=== PATIENT | female | born 1965 | race American Indian/Alaskan Native ===

== ENCOUNTER 2016-10-29 08:38 | Emergency (ER) | payer MEDICAID ==
[2016-10-29 08:38] VITALS: BMI 32.2
[2016-10-29 08:46] VITALS: RESP 16; TEMP 98.2; O2SAT 99
[2016-10-29] MEDS ORDERED: Metoprolol 1 mg/ml Inj IVP ONE ×2 (09:18→11:46)
[2016-10-29] MEDS ORDERED: Insulin Regular 100 units/ml IV STA ×2 (09:19→11:39)
--- NOTE | 2016-10-29 09:19 | ED PDOC ---
HPI: Hypertension/Hypotension Time Seen by Provider: 10/29/16 09:04 Chief Complaint (Nursing): Abdominal Pain Chief Complaint (Provider): Hypertension History Per: Patient, Family History/Exam Limitations: no limitations Onset/Duration Of Symptoms: Hrs Current Symptoms Are (Timing): Still Present Severity: None Exacerbating Factor(s): Pos: Recently Missed Doses Of Medication Additional Complaint(s): Patient is a 51 year old female who presents to ED for evaluation of elevated blood pressure and sugar this morning. Patient was scheduled for a CT-abdomen by Dr. Shirley with sedation but while in SDS she was unable to be medically cleared. Patient states she has been having right sided abdominal pain for several days which was the reason for the Ct. Denies any nausea, vomiting, lightheadedness, chest pain or palpations at this time. Crib Clerk: Dr. Shirley PMD: Dr. Morales Past Medical History Reviewed: Historical Data, Nursing Documentation, Vital Signs Vital Signs: Last Vital Signs Temp 98.2 F 10/29/16 08:44 Pulse 85 10/29/16 08:44 Resp 16 10/29/16 08:44 BP 163/94 H 10/29/16 08:44 Pulse Ox 99 10/29/16 08:44 - Medical History PMH: Anemia, Anxiety, Asthma, Back Problems (chronic back pain ), Bipolar Disorder, Bronchitis, CAD, Cardia Arrhythmia, CVA, Dementia, Diabetes, HTN, Hypercholesterolemia, TIA Denies: Chronic Kidney Disease - Surgical History Surgical History: (2 C Sections) - Family History Family History: States: Unknown Family Hx, Diabetes, Hypertension - Living Arrangements Living Arrangements: With Family - Immunization History Hx Tetanus Toxoid Vaccination: No Hx Influenza Vaccination: No Hx Pneumococcal Vaccination: No - Home Medications Home Medications: Ambulatory Orders Medication Instructions Recorded Albuterol Sulfate [Proair Hfa] 2 puff IH Q6H PRN 06/07/13 Metformin HCl 1,000 mg PO BID 06/07/13 Sitagliptin Phosphate [Januvia] 100 mg PO DAILY 06/07/13 Benztropine [Cogentin] 1 mg PO DAILY 05/03/15 Dulaglutide [Trulicity] 0.5 ml SC TH 05/03/15 Gabapentin [Neurontin] 300 mg PO BID 05/03/15 Glimepiride [amaRYL] 4 mg PO BID 05/03/15 Insulin Human NPH [Humulin N] 34 unit SC HS 05/03/15 Insulin Lispro Mix 75/25 [HumaLOG 44 unit SC QAM 05/03/15 Mix 75/25] Insulin Lispro Mix 75/25 [HumaLOG 60 unit SC QPM 05/03/15 Mix 75/25] Metoprolol Tartrate [Lopressor] 25 mg PO BID 05/03/15 Triamterene/Hydrochlorothiazid 1 tab PO DAILY 05/03/15 [Triamterene-Hctz 37.5-25 mg Tb] Allopurinol [Zyloprim] 100 mg PO BID 09/13/15 Aspirin [Ecotrin] 81 mg PO DAILY 09/13/15 Methocarbamol [Robaxin] 1,000 mg PO QID PRN 09/13/15 Potassium Chloride [K-Dur 20 mEq 20 meq PO DAILY 09/13/15 ER Tab] Risperidone [Risperdal] 2 mg PO BID 09/13/15 hydrOXYzine Pamoate [Vistaril] 25 mg PO TID 09/13/15 amLODIPine [Norvasc] 10 mg PO DAILY #0 tab 09/14/15 - Allergies Allergies/Adverse Reactions: Allergies Allergy/AdvReac Type Severity Reaction Status Date / Time acetaminophen [From Percocet] Allergy URTICARIA Verified 09/12/15 18:18 oxycodone HCl [From Percocet] Allergy URTICARIA Verified 09/12/15 18:18 strawberry Allergy URTICARIA Verified 09/12/15 18:18 Review of Systems ROS Statement: Except As Marked, All Systems Reviewed And Found Negative Eyes: Negative for: Vision Change Cardiovascular: Negative for: Chest Pain, Palpitations Respiratory: Negative for: Shortness of Breath Gastrointestinal: Positive for: Abdominal Pain. Negative for: Nausea, Vomiting , Diarrhea Musculoskeletal: Positive for: Back Pain. Negative for: Neck Pain Skin: Negative for: Rash Neurological: Negative for: Weakness, Numbness Physical Exam - Reviewed Nursing Documentation Reviewed: Yes Vital Signs Reviewed: Yes - Physical Exam Appears: Positive for: Non-toxic, No Acute Distress Skin: Positive for: Normal Color, Warm Eye Exam: Positive for: Normal appearance Neck: Positive for: Normal, Painless ROM Gastrointestinal/Abdominal: Positive for: Normal Exam. Negative for: Tenderness , Distended Back: Positive for: Normal Inspection. Negative for: L CVA Tenderness, R CVA Tenderness Extremity: Positive for: Normal ROM Neurologic/Psych: Positive for: Alert, Oriented. Negative for: Motor/Sensory Deficits - Laboratory Results Result Diagrams: 10/29/16 10:33 10/29/16 10:33 - ECG O2 Sat by Pulse Oximetry: 99 (ra) Pulse Ox Interpretation: Normal Medical Decision Making Medical Decision Making: Time: 904 Initial impression: Elevated blood pressure, hyperglycemia Initial plan: Accucheck in ED 307, blood pressure at bedside elevated. Patient is remain NPO all medication by IV. -- CMP -- Lipase -- CBC -- Lopressor, NSF and Insulin Scribe Attestation: Documented by Cindy Lloyd acting as a scribe for Codey Jeff MD MD Scribe Attestation: All medical record entries made by the Scribe were at my direction and personally dictated by me. I have reviewed the chart and agree that the record accurately reflects my personal performance of the history, physical exam, medical decision making, and the department course for this patient. I have also personally directed, reviewed, and agree with the discharge instructions and disposition. Disposition - Clinical Impression Clinical Impression: Abdominal pain, Hyperglycemia, Hypertension - Patient ED Disposition Is Patient to be Admitted: No Doctor Will See Patient In The: Office Counseled Patient/Family Regarding: Studies Performed, Diagnosis, Need For Followup - Disposition Referrals: Graham Shirley MD [Medical Doctor] - Disposition: Routine/Home Disposition Time: 12:48 Condition: GOOD Additional Instructions: Follow up with your PCP in 2-3 days. Instructions: Hypertension (ED), Diabetic Hyperglycemia (ED)
[2016-10-29] MEDS ORDERED: Sodium Chloride 0.9% 1,000 ML IV STA (09:20)
[2016-10-29 10:47] LABS: BASO % 0.4 % (0.0-2.0); EOS # 0.1 K/uL (0.0-0.7); EOS % 1.3 % (0.0-4.0); HEMATOCRIT 40.4 % (34.0-47.0); LYMPH # 2.9 K/uL (1.0-4.3); LYMPH % 36.1 % (20.0-40.0); MEAN CELL VOLUME 78.1 fl (81.0-99.0); MEAN CORPUSCULAR HEMOGLOBIN 25.7 pg (27.0-31.0); MEAN CORPUSCULAR HGB CONC 32.9 g/dL (33.0-37.0); MONO # 0.4 K/uL (0.0-0.8); MONO % 4.8 % (0.0-10.0); NEUT # 4.6 K/uL (1.8-7.0); NEUT % 57.4 % (50.0-75.0); NRBC % 0.1 % (0.0-0.0); RED CELL DISTRIBUTION WIDTH 15.2 % (11.5-14.5); WHITE BLOOD COUNT 8.1 K/uL (4.8-10.8)
[2016-10-29 10:57] LABS: CHLORIDE 98 mmol/L (98-107); POTASSIUM 3.9 MMOL/L (3.6-5.0); SODIUM 138 mmol/l (132-148)
[2016-10-29 10:59] LABS: BILIRUBIN,TOTAL 0.6 mg/dl (0.2-1.3); GFR AFRICAN-AMERICAN > 60
[2016-10-29 11:00] LABS: ALB/GLOB RATIO 1.3 (1.0-2.1); ALKALINE PHOSPHATASE 96 U/L (38-126); ALT/SGPT 24 U/L (9-52); AST/SGOT 15 U/L (14-36); BLOOD UREA NITROGEN 8 mg/dl (7-17); CALCIUM 9.5 mg/dL (8.4-10.2); CARBON DIOXIDE 26 mmol/L (22-30); GLUCOSE,RANDOM 304 mg/dL (65-105); LIPASE 133 U/L (23-300); TOTAL PROTEIN 7.5 G/DL (6.3-8.2)
[2016-10-29] MEDS ORDERED: Metoprolol 1 mg/ml Inj IVP STA (11:40)
[2016-10-29 12:40] VITALS: BP 144/89; PULSE 85
== END 2016-10-29 13:04 | disposition home or self-care (01) ==
LOC: H.ER 08:38
DX: R10.9 Unspecified abdominal pain (principal); E11.65 Type 2 diabetes mellitus with hyperglycemia; I10 Essential (primary) hypertension; E78.00 Pure hypercholesterolemia, unspecified; F03.90 Unspecified dementia, unspecified severity, without behavioral disturbance, psychotic disturbance, mood disturbance, and anxiety; F31.9 Bipolar disorder, unspecified; F41.9 Anxiety disorder, unspecified; I25.10 Atherosclerotic heart disease of native coronary artery without angina pectoris; Z79.4 Long term (current) use of insulin; Z79.82 Long term (current) use of aspirin; Z86.73 Personal history of transient ischemic attack (TIA), and cerebral infarction without residual deficits

== ENCOUNTER 2017-03-16 06:28 | Observation (INO) | payer MEDICAID ==
[2017-03-16 06:29] VITALS: BMI 32.2
[2017-03-16 06:48] VITALS: RESP 16
--- NOTE | 2017-03-16 07:49 | ED PDOC ---
HPI: Chest Pain Time Seen by Provider: 03/16/17 07:04 Chief Complaint (Nursing): Chest Pain Chief Complaint (Provider): Chest Pain History Per: Patient History/Exam Limitations: no limitations Onset/Duration Of Symptoms: Hrs Current Symptoms Are (Timing): Intermittent Episodes Quality: Sharp Additional Complaint(s): Ashanti Montiel,a 51 year old female, with a past medical history of coronary artery disease and cardiac arrhythmia presents to the ED complaining of sharp, intermittent left sided chest pain which started this morning. The patient states that the pain radiates down her left arm and is associated with shortness of breath and nausea. She states that she takes daily aspirin which offered no relief, but states she did not take any today. Patient reports that she had a stress test performed which she failed but she tried again and does not know the results. PMD: Dr. Hanson Past Medical History Reviewed: Historical Data, Nursing Documentation, Vital Signs Vital Signs: Last Vital Signs Temp 98.5 F 03/16/17 06:45 Pulse 88 03/16/17 07:01 Resp 16 03/16/17 06:45 BP 187/96 H 03/16/17 06:45 Pulse Ox 98 03/16/17 08:00 - Medical History PMH: Anemia, Anxiety, Arthritis, Asthma, Back Problems (chronic back pain ), Bipolar Disorder, Bronchitis, CAD, Cardia Arrhythmia, CVA, Dementia, Diabetes, HTN, Hypercholesterolemia Denies: Colonic Polyps, Fractures, Chronic Kidney Disease, TIA - Surgical History Surgical History: (2 C Sections) - Family History Family History: States: Unknown Family Hx, Diabetes, Hypertension - Social History Current smoker - smoking cessation education provided: No Alcohol: None Drugs: Denies - Immunization History Hx Tetanus Toxoid Vaccination: No Hx Influenza Vaccination: No Hx Pneumococcal Vaccination: No - Home Medications Home Medications: Ambulatory Orders Medication Instructions Recorded Albuterol Sulfate [Proair Hfa] 2 puff IH Q6H PRN 06/07/13 Metformin HCl 1,000 mg PO BID 06/07/13 Sitagliptin Phosphate [Januvia] 100 mg PO DAILY 06/07/13 Benztropine [Cogentin] 1 mg PO DAILY 05/03/15 Dulaglutide [Trulicity] 0.5 ml SC TH 05/03/15 Gabapentin [Neurontin] 300 mg PO BID 05/03/15 Glimepiride [amaRYL] 4 mg PO BID 05/03/15 Insulin Human NPH [Humulin N] 34 unit SC HS 05/03/15 Insulin Lispro Mix 75/25 [HumaLOG 44 unit SC QAM 05/03/15 Mix 75/25] Insulin Lispro Mix 75/25 [HumaLOG 60 unit SC QPM 05/03/15 Mix 75/25] Metoprolol Tartrate [Lopressor] 25 mg PO BID 05/03/15 Triamterene/Hydrochlorothiazid 1 tab PO DAILY 05/03/15 [Triamterene-Hctz 37.5-25 mg Tb] Allopurinol [Zyloprim] 100 mg PO BID 09/13/15 Aspirin [Ecotrin] 81 mg PO DAILY 09/13/15 Methocarbamol [Robaxin] 1,000 mg PO QID PRN 09/13/15 Potassium Chloride [K-Dur 20 mEq 20 meq PO DAILY 09/13/15 ER Tab] Risperidone [Risperdal] 2 mg PO BID 09/13/15 hydrOXYzine Pamoate [Vistaril] 25 mg PO TID 09/13/15 amLODIPine [Norvasc] 10 mg PO DAILY #0 tab 09/14/15 Enalapril Maleate [Vasotec] 20 mg PO DAILY 11/06/16 - Allergies Allergies/Adverse Reactions: Allergies Allergy/AdvReac Type Severity Reaction Status Date / Time acetaminophen [From Percocet] Allergy URTICARIA Verified 03/16/17 06:45 oxycodone HCl [From Percocet] Allergy URTICARIA Verified 03/16/17 06:45 strawberry Allergy URTICARIA Verified 03/16/17 06:45 JULIEN Risk Score for UA/NSTEMI - JULIEN Risk Score Age > 64: NO 3 or more CAD Risk Factors: YES Known CAD (Stenosis greater than 50%): YES Aspirin use in past 7 days: YES Severe Angina: NO EKG ST changes greater than 0.5mm: NO Positive Cardiac Marker: NO JULIEN Score: 3 Risk %: 13% Review of Systems ROS Statement: Except As Marked, All Systems Reviewed And Found Negative Cardiovascular: Positive for: Chest Pain (left sided chest pain radiates down left arm) Respiratory: Positive for: Shortness of Breath Gastrointestinal: Positive for: Nausea Physical Exam - Reviewed Nursing Documentation Reviewed: Yes Vital Signs Reviewed: Yes - Physical Exam Appears: Positive for: Non-toxic, No Acute Distress Head Exam: Positive for: ATRAUMATIC, NORMAL INSPECTION, NORMOCEPHALIC Skin: Positive for: Normal Color, Warm, Dry. Negative for: Rash Eye Exam: Positive for: Normal appearance, EOMI, PERRL ENT: Positive for: Normal ENT Inspection Neck: Positive for: Normal, Painless ROM, Supple Cardiovascular/Chest: Positive for: Regular Rate, Rhythm, Chest Non Tender. Negative for: Murmur, Tachycardia Respiratory: Positive for: Normal Breath Sounds. Negative for: Rales, Rhonchi, Wheezing, Respiratory Distress Gastrointestinal/Abdominal: Positive for: Normal Exam, Bowel Sounds, Soft. Negative for: Tenderness, Mass, Guarding, Rebound Back: Positive for: Normal Inspection. Negative for: L CVA Tenderness Extremity: Positive for: Normal ROM. Negative for: Tenderness, Deformity, Swelling Neurologic/Psych: Positive for: Alert, Oriented, Gait - Laboratory Results Result Diagrams: 03/16/17 08:28 03/16/17 08:28 - ECG O2 Sat by Pulse Oximetry: 98 (RA) Pulse Ox Interpretation: Normal Medical Decision Making Medical Decision Makin Initial Impression: 51 year old female presenting with radiating left sided chest pain Initial Plan: * EKG * PROBNP * CMP * Troponin * Udip * CBC * PTT * Prothrombin * Time * CXR * [id number] * Urinalysis * Reevaluation EKG performed * Normal sinus rhythm at 72 * No ST changes Scribe Attestation Documented by Connie Arnold acting as a scribe for Ember Roblero MD. Provider Attestation All medical record entries made by the Scribe were at my direction and personally dictated by me. I have reviewed the chart and agree that the record accurately reflects my personal performance of the history, physical exam, medical decision making, and the department course for this patient. I have also personally directed, reviewed, and agree with the discharge instructions and disposition. Disposition - Clinical Impression Clinical Impression: Chest pain - Patient ED Disposition Is Patient to be Admitted: Yes - Disposition Disposition Time: 09:23 Condition: STABLE Forms: [employer] (Arabic) - Pt Status Changed To: Hospital Disposition Of: Observation - POA Present On Arrival: Poor Glycemic Control
[2017-03-16] MEDS ORDERED: Sodium Chloride 0.9% 1,000 ML IV STA (08:13)
[2017-03-16 08:33] LABS: BASO # 0.1 K/uL (0.0-0.2); BASO % 0.7 % (0.0-2.0); EOS # 0.1 K/uL (0.0-0.7); EOS % 1.9 % (0.0-4.0); HEMATOCRIT 37.5 % (34.0-47.0); LYMPH # 2.4 K/uL (1.0-4.3); LYMPH % 30.6 % (20.0-40.0); MEAN CELL VOLUME 80.1 fl (81.0-99.0); MEAN CORPUSCULAR HEMOGLOBIN 27.2 pg (27.0-31.0); MEAN PLATELET VOLUME 10.4 fl (7.2-11.7); MONO # 0.4 K/uL (0.0-0.8); MONO % 5.4 % (0.0-10.0); NEUT # 4.7 K/uL (1.8-7.0); NEUT % 61.4 % (50.0-75.0); NRBC % 0.2 % (0.0-0.0); RED CELL DISTRIBUTION WIDTH 15.1 % (11.5-14.5); WHITE BLOOD COUNT 7.7 K/uL (4.8-10.8)
[2017-03-16 08:41] LABS: RBC URINE 3 /hpf (0-3); URINE BACTERIA RARE (<OCC); URINE BILIRUBIN NEGATIVE (NEGATIVE); URINE BLOOD NEGATIVE (NEGATIVE); URINE COLOR STRAW (YELLOW); URINE GLUCOSE (UA) >=500 mg/dL (Normal); URINE KETONE NEGATIVE (NEGATIVE); URINE LEUKOCYTE ESTERASE NEG Leu/uL (Negative); URINE PROTEIN 30 mg/dL (NEGATIVE); URINE UROBILINOGEN 0.2-1.0 mg/dL (0.2-1.0); WBC URINE 1 /hpf (0-5)
[2017-03-16 08:45] LABS: PARTIAL THROMBOPLASTIN TIME 34.4 Seconds (25.6-37.1)
[2017-03-16 08:56] LABS: ALB/GLOB RATIO 1.3 (1.0-2.1); ALKALINE PHOSPHATASE 120 U/L (38-126); ALT/SGPT 35 U/L (9-52); AST/SGOT 24 U/L (14-36); BILIRUBIN,TOTAL 0.5 mg/dl (0.2-1.3); BLOOD UREA NITROGEN 12 mg/dl (7-17); CALCIUM 8.7 mg/dL (8.4-10.2); CARBON DIOXIDE 26 mmol/L (22-30); CHLORIDE 102 mmol/L (98-107); GFR AFRICAN-AMERICAN > 60; GLUCOSE,RANDOM 314 mg/dL (65-105); POTASSIUM 4.1 MMOL/L (3.6-5.0); SODIUM 137 mmol/l (132-148); TOTAL PROTEIN 7.1 G/DL (6.3-8.2)
--- NOTE | 2017-03-16 09:55 | RAD ---
HISTORY: Chest pain COMPARISON: 09/12/2015 FINDINGS: LUNGS: The lungs are well inflated and clear. PLEURA: No significant pleural effusion identified, no pneumothorax apparent. CARDIOVASCULAR: Normal. OSSEOUS STRUCTURES: No significant abnormalities. VISUALIZED UPPER ABDOMEN: Normal. OTHER FINDINGS: None. IMPRESSION: No active pulmonary disease.
[2017-03-16 09:57] VITALS: BP 121/77; PULSE 80; TEMP 97.8; O2SAT 100
--- NOTE | 2017-03-16 11:18 | CARD ---
APPROVED REPORT EKG Measurement Heart [id number] HI 180P41 [id number] <Conclusion> Normal sinus rhythm Normal ECG
== END 2017-03-16 09:57 | disposition left against medical advice (07) ==
LOC: H.ER 06:28 → H.ERHOLD 09:22
PROVIDERS: ADMIT Internal Medicine; ATTEND Internal Medicine
DX: R07.9 Chest pain, unspecified (principal); E11.9 Type 2 diabetes mellitus without complications; E78.00 Pure hypercholesterolemia, unspecified; F03.90 Unspecified dementia, unspecified severity, without behavioral disturbance, psychotic disturbance, mood disturbance, and anxiety; F31.9 Bipolar disorder, unspecified; I10 Essential (primary) hypertension; J45.909 Unspecified asthma, uncomplicated; Z86.73 Personal history of transient ischemic attack (TIA), and cerebral infarction without residual deficits; D64.9 Anemia, unspecified; F41.9 Anxiety disorder, unspecified; J40 Bronchitis, not specified as acute or chronic; M54.9 Dorsalgia, unspecified; G89.29 Other chronic pain; M19.90 Unspecified osteoarthritis, unspecified site; I25.10 Atherosclerotic heart disease of native coronary artery without angina pectoris; Z79.82 Long term (current) use of aspirin; Z79.84 Long term (current) use of oral hypoglycemic drugs; R11.0 Nausea
CPT/HCPCS: 71010; 80053; 81003; 82948; 83880; 84484; 85025; 85610; 85730; 93005; 96360; 99283; G0378; J7040

== ENCOUNTER 2017-06-28 07:42 | Emergency (ER) | payer MEDICAID ==
[2017-06-28 07:43] VITALS: BMI 32.2
[2017-06-28 08:06] VITALS: BP 162/93; PULSE 84; RESP 18; TEMP 98; O2SAT 97
--- NOTE | 2017-06-28 08:56 | ED PDOC ---
HPI: SOB/CHF/COPD Time Seen by Provider: 06/28/17 08:04 Chief Complaint (Nursing): Shortness Of Breath Chief Complaint (Provider): Shortness Of Breath History Per: Patient History/Exam Limitations: no limitations Onset/Duration Of Symptoms: Days (x1 week) Current Symptoms Are (Timing): Still Present Additional Complaint(s): Ashanti Montiel is a 51 year old female with a past medical history of asthma who presents to the ED complaining of shortness of breath with exertion walking less than 1 block x1 week. Patient also reports left sided chest pain 3 days ago , orthopnea and leg swelling. PMD: Provider TBD Against Medical Advice - AMA Patient Left Against Medical Advice: The patient declines admission to the hospital and wishes to leave the Emergency Department. This action is against my medical advice. This decision was made with informed refusal. The patient was told that admission to the hospital is necessary. Explanation of the reasons why were discussed. The risks of leaving were explained to the patient and include, but are not limited to, worsening of known or currently unknown conditions, permanent disability and from undiagnosed or untreated conditions. The patient has the capacity to make this informed decision and understands my explanation of the current medical problem and risks of leaving. The patient voluntarily accepts these risks and signed an AMA form documenting our conversation. The patient was given the opportunity to ask questions and reconsider. The patient was encouraged to return to the Emergency Department at any time for further care. Past Medical History Reviewed: Historical Data, Nursing Documentation, Vital Signs Vital Signs: Last Vital Signs Temp 98 F 06/28/17 08:03 Pulse 84 06/28/17 08:03 Resp 18 06/28/17 08:08 BP 162/93 H 06/28/17 08:03 Pulse Ox 97 07/04/17 10:33 - Medical History PMH: Anemia, Anxiety, Arthritis, Asthma, Back Problems (chronic back pain ), Bipolar Disorder, Bronchitis, CAD, Cardia Arrhythmia, CVA, Dementia, Diabetes, HTN, Hypercholesterolemia Denies: Colonic Polyps, Fractures, Chronic Kidney Disease, TIA - Surgical History Surgical History: (2 C Sections) - Family History Family History: States: Unknown Family Hx, Diabetes, Hypertension - Social History Current smoker - smoking cessation education provided: No Alcohol: None Drugs: Denies - Immunization History Hx Tetanus Toxoid Vaccination: No Hx Influenza Vaccination: No Hx Pneumococcal Vaccination: No - Home Medications Home Medications: Ambulatory Orders Medication Instructions Recorded Albuterol Sulfate [Proair Hfa] 2 puff IH Q6H PRN 06/07/13 Metformin HCl 1,000 mg PO BID 06/07/13 Sitagliptin Phosphate [Januvia] 100 mg PO DAILY 06/07/13 Benztropine [Cogentin] 1 mg PO DAILY 05/03/15 Dulaglutide [Trulicity] 0.5 ml SC TH 05/03/15 Gabapentin [Neurontin] 300 mg PO BID 05/03/15 Glimepiride [amaRYL] 4 mg PO BID 05/03/15 Insulin Human NPH [Humulin N] 34 unit SC HS 05/03/15 Insulin Lispro Mix 75/25 [HumaLOG 44 unit SC QAM 05/03/15 Mix 75/25] Insulin Lispro Mix 75/25 [HumaLOG 60 unit SC QPM 05/03/15 Mix 75/25] Metoprolol Tartrate [Lopressor] 25 mg PO BID 05/03/15 Triamterene/Hydrochlorothiazid 1 tab PO DAILY 05/03/15 [Triamterene-Hctz 37.5-25 mg Tb] Allopurinol [Zyloprim] 100 mg PO BID 09/13/15 Aspirin [Ecotrin] 81 mg PO DAILY 09/13/15 Methocarbamol [Robaxin] 1,000 mg PO QID PRN 09/13/15 Potassium Chloride [K-Dur 20 mEq 20 meq PO DAILY 09/13/15 ER Tab] Risperidone [Risperdal] 2 mg PO BID 09/13/15 hydrOXYzine Pamoate [Vistaril] 25 mg PO TID 09/13/15 amLODIPine [Norvasc] 10 mg PO DAILY #0 tab 09/14/15 Enalapril Maleate [Vasotec] 20 mg PO DAILY 11/06/16 - Allergies Allergies/Adverse Reactions: Allergies Allergy/AdvReac Type Severity Reaction Status Date / Time acetaminophen [From Percocet] Allergy URTICARIA Verified 03/16/17 06:45 oxycodone HCl [From Percocet] Allergy URTICARIA Verified 03/16/17 06:45 strawberry Allergy URTICARIA Verified 03/16/17 06:45 Review of Systems ROS Statement: Except As Marked, All Systems Reviewed And Found Negative Constitutional: Negative for: Fever Respiratory: Positive for: Cough (non-productive), SOB with Exertion Physical Exam - Reviewed Nursing Documentation Reviewed: Yes Vital Signs Reviewed: Yes - Physical Exam Appears: Positive for: Well, Non-toxic, No Acute Distress Head Exam: Positive for: ATRAUMATIC, NORMAL INSPECTION, NORMOCEPHALIC Skin: Positive for: Normal Color, Warm, Dry Eye Exam: Positive for: EOMI, Normal appearance, PERRL Neck: Positive for: Normal, Painless ROM, Supple Cardiovascular/Chest: Positive for: Regular Rate, Rhythm. Negative for: Murmur Respiratory: Positive for: Normal Breath Sounds. Negative for: Respiratory Distress Gastrointestinal/Abdominal: Positive for: Normal Exam, Bowel Sounds, Soft. Negative for: Tenderness Back: Positive for: Normal Inspection. Negative for: L CVA Tenderness, R CVA Tenderness, Vertebral Tenderness Extremity: Positive for: Normal ROM. Negative for: Pedal Edema, Deformity Neurologic/Psych: Positive for: Alert, Oriented. Negative for: Motor/Sensory Deficits - Laboratory Results Result Diagrams: 06/28/17 08:44 06/28/17 08:44 - ECG O2 Sat by Pulse Oximetry: 97 (RA) Pulse Ox Interpretation: Normal Medical Decision Making Medical Decision Making: Time: 08:08 Initial Impression: URI Plan: --EKG --ProBNP --CMP --Troponin I --ED urine dipstick --CBC w/ differential --D Dimer --PTT --Prothrombin time --X-Ray chest portable --Blood culture --Urinalysis Time: 12:55 --This patient is choosing to leave against medical advice. I have personally explained to the pt that choosing to do so may result in permanent bodily harm or . I have discussed at great length that without further evaluation and monitoring there may be unforeseen circumstances and/or deterioration causing permanent bodily harm or as a result of their choice. The pt verbalized these risks back to the physician in laymans terms. The pt is alert, oriented, and shows the mental capacity to make clear decisions regarding the pts health care at this time. The pt continues to wish to leave against medical advice. --In light of the pts decision to leave AMA, follow-up has been arranged and the pt is aware of the importance of following up as instructed. The pt has been advised that they should return to the ED immediately if they change their mind at any time, or if their condition begins to change or worsen in any way. Scribe Attestation: Documented by Roshan Ramos acting as a scribe for Ember Roblero MD. Scribe Attestation: All medical record entries made by the Scribe were at my direction and personally dictated by me. I have reviewed the chart and agree that the record accurately reflects my personal performance of the history, physical exam, medical decision making, and the department course for this patient. I have also personally directed, reviewed, and agree with the discharge instructions and disposition. Disposition - Clinical Impression Clinical Impression: Chest pain, Dyspnea - Patient ED Disposition Is Patient to be Admitted: No - Disposition Disposition: Against Medical Advice Disposition Time: 12:55 Condition: FAIR Forms: [employer] ([place]ian)
[2017-06-28 08:57] LABS: RBC URINE 1 /hpf (0-3); URINE BILIRUBIN NEGATIVE (NEGATIVE); URINE BLOOD NEGATIVE (NEGATIVE); URINE COLOR STRAW (YELLOW); URINE GLUCOSE (UA) >=500 mg/dL (Normal); URINE KETONE NEGATIVE (NEGATIVE); URINE LEUKOCYTE ESTERASE NEG Leu/uL (Negative); URINE PROTEIN 100 mg/dL (NEGATIVE); URINE UROBILINOGEN 0.2-1.0 mg/dL (0.2-1.0); WBC URINE 1 /hpf (0-5)
[2017-06-28 09:03] LABS: ALB/GLOB RATIO 1.3 (1.0-2.1); BILIRUBIN,TOTAL 0.6 mg/dl (0.2-1.3); CALCIUM 8.7 mg/dL (8.4-10.2); CARBON DIOXIDE 26 mmol/L (22-30); CHLORIDE 104 mmol/L (98-107); GFR AFRICAN-AMERICAN > 60; GLUCOSE,RANDOM 281 mg/dL (65-105); SODIUM 141 mmol/l (132-148); TOTAL PROTEIN 7.6 G/DL (6.3-8.2)
[2017-06-28 09:08] LABS: ALKALINE PHOSPHATASE 80 U/L (38-126); ALT/SGPT 30 U/L (9-52); AST/SGOT 27 U/L (14-36); BLOOD UREA NITROGEN 10 mg/dl (7-17); POTASSIUM 4.4 MMOL/L (3.6-5.0)
[2017-06-28 09:11] LABS: BASO % 0.6 % (0.0-2.0); EOS # 0.2 K/uL (0.0-0.7); EOS % 2.3 % (0.0-4.0); HEMATOCRIT 38.9 % (34.0-47.0); LYMPH % 37.8 % (20.0-40.0); MEAN CELL VOLUME 79.3 fl (81.0-99.0); MEAN CORPUSCULAR HEMOGLOBIN 25.2 pg (27.0-31.0); MEAN CORPUSCULAR HGB CONC 31.8 g/dL (33.0-37.0); MEAN PLATELET VOLUME 9.9 fl (7.2-11.7); MONO # 0.4 K/uL (0.0-0.8); MONO % 5.3 % (0.0-10.0); NEUT # 4.3 K/uL (1.8-7.0); RED CELL DISTRIBUTION WIDTH 15.4 % (11.5-14.5); WHITE BLOOD COUNT 7.9 K/uL (4.8-10.8)
[2017-06-28 09:48] LABS: PARTIAL THROMBOPLASTIN TIME 35.8 Seconds (25.6-37.1)
--- NOTE | 2017-06-28 11:57 | RAD ---
HISTORY: Shortness of breath. Portable study 08:34. COMPARISON: 03/16/2017. FINDINGS: LUNGS: No active pulmonary disease. PLEURA: No significant pleural effusion identified, no pneumothorax apparent. CARDIOVASCULAR: No radiographic findings to suggest acute or significant cardiovascular disease. OSSEOUS STRUCTURES: No significant abnormalities. VISUALIZED UPPER ABDOMEN: Normal. OTHER FINDINGS: None. IMPRESSION: No active disease. No significant interval change compared to the prior examination(s).
--- NOTE | 2017-06-29 11:10 | CARD ---
APPROVED REPORT EKG Measurement Heart [id number] MD [id number] <Conclusion> Normal sinus rhythm Possible Left atrial enlargement Incomplete RBBB
== END 2017-06-28 13:10 | disposition left against medical advice (07) ==
LOC: H.ER 07:42
DX: R07.9 Chest pain, unspecified (principal); R06.00 Dyspnea, unspecified; E11.9 Type 2 diabetes mellitus without complications; Z86.59 Personal history of other mental and behavioral disorders; G89.29 Other chronic pain; J45.909 Unspecified asthma, uncomplicated; Z86.73 Personal history of transient ischemic attack (TIA), and cerebral infarction without residual deficits

== ENCOUNTER 2017-09-05 16:54 | Emergency (ER) | payer MEDICAID ==
[2017-09-05 16:54] VITALS: BMI 32.2
--- NOTE | 2017-09-05 17:33 | ED PDOC ---
HPI: Abdomen Time Seen by Provider: 09/05/17 17:14 Chief Complaint (Nursing): Abdominal Pain Chief Complaint (Provider): Abdominal Pain History Per: Patient History/Exam Limitations: no limitations Onset/Duration Of Symptoms: Days (x2) Outside of [place] travel?: No Current Symptoms Are (Timing): Still Present Additional Complaint(s): 52 year old female with medical history of hypercholesterolemia and diabetes, who presents to the emergency department with a complaint of abdominal pain associated with nausea, vomiting and diarrhea ongoing for 2 days. Denied any fever, chills, chest pain, shortness of breath, difficulty urinating, bloody urine, incontinence, sick contacts or recent travel. PMD: none provided Past Medical History Reviewed: Historical Data (.0), Nursing Documentation, Vital Signs Vital Signs: Last Vital Signs Temp 99.8 F H 09/05/17 20:50 Pulse 108 H 09/05/17 20:50 Resp 16 09/05/17 20:50 BP 109/57 L 09/05/17 20:50 Pulse Ox 95 09/05/17 20:50 - Medical History PMH: Anemia, Anxiety, Arthritis, Asthma, Back Problems (chronic back pain ), Bipolar Disorder, Bronchitis, CAD, Cardia Arrhythmia, CVA, Dementia, Diabetes, HTN, Hypercholesterolemia Denies: No Chronic Diseases, Colonic Polyps, Fractures, Chronic Kidney Disease, TIA - Surgical History Surgical History: (2 C Sections) Denies: No Surg Hx Other surgeries: hysterectomy - Family History Family History: States: Unknown Family Hx, Diabetes, Hypertension - Social History Current smoker - smoking cessation education provided: No Alcohol: None Drugs: Denies - Immunization History Hx Tetanus Toxoid Vaccination: No Hx Influenza Vaccination: No Hx Pneumococcal Vaccination: No - Home Medications Home Medications: Ambulatory Orders Medication Instructions Recorded Albuterol Sulfate [Proair Hfa] 2 puff IH Q6H PRN 06/07/13 Metformin HCl 1,000 mg PO BID 06/07/13 Sitagliptin Phosphate [Januvia] 100 mg PO DAILY 06/07/13 Benztropine [Cogentin] 1 mg PO DAILY 05/03/15 Dulaglutide [Trulicity] 0.5 ml SC TH 05/03/15 Gabapentin [Neurontin] 300 mg PO BID 05/03/15 Glimepiride [amaRYL] 4 mg PO BID 10/09/15 Insulin Human NPH [Humulin N] 34 unit SC HS 05/03/15 Insulin Lispro Mix 75/25 [HumaLOG 44 unit SC QAM 05/03/15 Mix 75/25] Insulin Lispro Mix 75/25 [HumaLOG 60 unit SC QPM 05/03/15 Mix 75/25] Metoprolol Tartrate [Lopressor] 25 mg PO BID 05/03/15 Triamterene/Hydrochlorothiazid 1 tab PO DAILY 05/03/15 [Triamterene-Hctz 37.5-25 mg Tb] Allopurinol [Zyloprim] 100 mg PO BID 09/13/15 Aspirin [Ecotrin] 81 mg PO DAILY 09/13/15 Methocarbamol [Robaxin] 1,000 mg PO QID PRN 09/13/15 Potassium Chloride [K-Dur 20 mEq 20 meq PO DAILY 09/13/15 ER Tab] Risperidone [Risperdal] 2 mg PO BID 09/13/15 hydrOXYzine Pamoate [Vistaril] 25 mg PO TID 09/13/15 amLODIPine [Norvasc] 10 mg PO DAILY #0 tab 09/14/15 Enalapril Maleate [Vasotec] 20 mg PO DAILY 11/06/16 Ciprofloxacin [Cipro] 500 mg PO BID #13 tab 09/05/17 Dicyclomine [Bentyl] 20 mg PO QID PRN #10 tab 09/05/17 metroNIDAZOLE [Flagyl] 500 mg PO TID #20 tab 09/05/17 - Allergies Allergies/Adverse Reactions: Allergies Allergy/AdvReac Type Severity Reaction Status Date / Time acetaminophen [From Percocet] Allergy URTICARIA Verified 09/05/17 16:59 oxycodone HCl [From Percocet] Allergy URTICARIA Verified 09/05/17 16:59 strawberry Allergy URTICARIA Verified 09/05/17 16:59 Review of Systems ROS Statement: Except As Marked, All Systems Reviewed And Found Negative Constitutional: Negative for: Fever, Chills Cardiovascular: Negative for: Chest Pain Respiratory: Negative for: Shortness of Breath Gastrointestinal: Positive for: Nausea, Vomiting, Abdominal Pain, Diarrhea Genitourinary Female: Negative for: Dysuria, Incontinence, Hematuria Physical Exam - Reviewed Nursing Documentation Reviewed: Yes Vital Signs Reviewed: Yes - Physical Exam Appears: Positive for: Well, Non-toxic, No Acute Distress Cardiovascular/Chest: Positive for: Regular Rate, Rhythm, Chest Non Tender Respiratory: Positive for: Normal Breath Sounds. Negative for: Decreased Breath Sounds, Respiratory Distress Gastrointestinal/Abdominal: Positive for: Soft, Tenderness (LLQ). Negative for : Normal Exam, Guarding, Rebound Neurologic/Psych: Positive for: Alert, Oriented - Laboratory Results Result Diagrams: 09/05/17 18:45 09/05/17 18:45 - ECG O2 Sat by Pulse Oximetry: 98 (RA) Pulse Ox Interpretation: Normal Medical Decision Making Medical Decision Making: Initial Impression: Abdominal pain Initial Plan: * CT ABD/pelvis with IV contrast * EKG * CMP * Urine * Urine dipstick * CBC * PTT * PT * NS 1000ml IV per 1,000mls/hr * Zofran 4mg IV * Accu-check * UA ____ Time: 2021 --CT ABD/pelvis FINDINGS: Lower thorax: No acute findings. ABDOMEN: Liver: Fatty infiltration. Gallbladder and bile ducts: No calcified stones. No ductal dilation. Pancreas: 1.4 x 1.5 x 1.1 cm hypodense lesion within/along uncinate process, grossly stable. Spleen: No splenomegaly. Adrenals: No mass. Kidneys and ureters: Probable LEFT renal cyst. Few too small to characterize lesions within kidneys. No hydronephrosis. Stomach and bowel: Few scattered diverticula within colon. No associated inflammatory stranding. Segmental areas of mild mural thickening vs underdistention of large bowel. No associated inflammatory stranding. No obstruction. Appendix: No findings to suggest acute appendicitis. PELVIS: Bladder: Unremarkable. Reproductive: Hysterectomy. ABDOMEN and PELVIS: Intraperitoneal space: No significant fluid collection. No free air. Bones/joints: Facet osteoarthrosis within lower lumbar spine with anterolisthesis. No acute fracture. Soft tissues: Laparotomy scar. Vasculature: Mild atherosclerotic disease. No aneurysm. Lymph nodes: No pathologically enlarged lymph nodes. IMPRESSION: 1. Mild colitis versus underdistention. Clinical correlation is needed. 2. Pancreatic lesion. Recommend a single follow-up abdominal MRI in 1 year. 3. Incidental/non-acute findings are described above. Scribe Attestation: Documented by Charity Brennan, acting as a scribe for Ember Roblero MD. Provider Scribe Attestation: All medical record entries made by the Scribe were at my direction and personally dictated by me. I have reviewed the chart and agree that the record accurately reflects my personal performance of the history, physical exam, medical decision making, and the department course for this patient. I have also personally directed, reviewed, and agree with the discharge instructions and disposition. Disposition - Clinical Impression Clinical Impression: Colitis - Disposition Disposition: Routine/Home Disposition Time: 22:18 Condition: STABLE Additional Instructions: FOLLOW-UP WITH PMD WITHIN 2 DAYS FOR REEVALUATION. Prescriptions: Ciprofloxacin [Cipro] 500 mg PO BID #13 tab Dicyclomine [Bentyl] 20 mg PO QID PRN #10 tab PRN Reason: Pain, Moderate (4-7) metroNIDAZOLE [Flagyl] 500 mg PO TID #20 tab Instructions: Colitis (ED) Forms: [employer] ([place])
[2017-09-05] MEDS ORDERED: Sodium Chloride 0.9% 1,000 ML IV STA (18:17)
[2017-09-05 18:50] LABS: BASO % 0.3 % (0.0-2.0); EOS % 0.2 % (0.0-4.0); HEMOGLOBIN 13.7 g/dL (12.0-16.0); LYMPH # 0.6 K/uL (1.0-4.3); LYMPH % 5.3 % (20.0-40.0); MEAN CELL VOLUME 78.4 fl (81.0-99.0); MEAN CORPUSCULAR HEMOGLOBIN 25.4 pg (27.0-31.0); MEAN CORPUSCULAR HGB CONC 32.4 g/dL (33.0-37.0); MONO # 0.3 K/uL (0.0-0.8); MONO % 2.3 % (0.0-10.0); NEUT # 10.6 K/uL (1.8-7.0); NEUT % 91.9 % (50.0-75.0); NRBC % 0.1 % (0.0-0.0); PLATELET COUNT 256 K/uL (130-400); RED CELL DISTRIBUTION WIDTH 16.2 % (11.5-14.5); WHITE BLOOD COUNT 11.5 K/uL (4.8-10.8)
[2017-09-05 18:52] VITALS: RESP 16
[2017-09-05 19:07] LABS: ALB/GLOB RATIO 1.2 (1.0-2.1); ALBUMIN 4.7 g/dL (3.5-5.0); ALT/SGPT 29 U/L (9-52); AST/SGOT 18 U/L (14-36); BLOOD UREA NITROGEN 24 mg/dl (7-17); CALCIUM 10.4 mg/dL (8.4-10.2); GFR AFRICAN-AMERICAN > 60; GFR NON-AFRICAN AMERICAN > 60
[2017-09-05 19:09] LABS: SQUAMOUS EPITHIAL 3 /hpf (0-5); URINE BACTERIA RARE (<OCC); URINE BILIRUBIN NEGATIVE (NEGATIVE); URINE BLOOD NEGATIVE (NEGATIVE); URINE CLARITY CLOUDY (Clear); URINE COLOR YELLOW (YELLOW); URINE GLUCOSE (UA) >=500 mg/dL (Normal); URINE LEUKOCYTE ESTERASE NEG Leu/uL (Negative); URINE NITRATE NEGATIVE (NEGATIVE); URINE PROTEIN 30 mg/dL (NEGATIVE); URINE UROBILINOGEN 0.2-1.0 mg/dL (0.2-1.0)
[2017-09-05 19:23] LABS: LYMPHOCYTE 7 % (20-50); MONOCYTE 3 % (0-10); NEUTROPHIL 90 % (42-75); PLATELET ESTIMATE NORMAL (NORMAL); TOTAL CELLS COUNTED 100
[2017-09-05] MEDS ORDERED: Iohexol 300 100 ML IJ ONE (19:30)
[2017-09-05] MEDS ORDERED: Sodium Chloride 0.9% 50 ML IV ONE (19:31)
[2017-09-05 19:49] LABS: INR 1.1 (0.9-1.2); PARTIAL THROMBOPLASTIN TIME 32.4 Seconds (25.6-37.1); PROTHROMBIN TIME 12.7 Seconds (9.8-13.1)
--- NOTE | 2017-09-05 20:22 | CT ---
EXAM: CT Abdomen and Pelvis With Intravenous Contrast CLINICAL HISTORY: 52 years old, female; Signs and symptoms; Nausea and vomiting and other: Diarrhea; Prior surgery; Surgery date: 6+ months; Surgery type: 2 c-sections. Hysterectomy; Additional info: Llq pain. Sent phy. Doc. TECHNIQUE: Axial computed tomography images of the abdomen and pelvis with intravenous contrast. All CT scans at this facility use one or more dose reduction techniques, viz.: automated exposure control; ma/kV adjustment per patient size (including targeted exams where dose is matched to indication; i.e. head); or iterative reconstruction technique. Coronal and sagittal reformatted images were created and reviewed. CONTRAST: 95 mL of [id number] administered intravenously. COMPARISON: CT - ABDOMEN,PELVIS W/WO CONTRAST 2016-10-29 14:33 FINDINGS: Lower thorax: No acute findings. ABDOMEN: Liver: Fatty infiltration. Gallbladder and bile ducts: No calcified stones. No ductal dilation. Pancreas: 1.4 x 1.5 x 1.1 cm hypodense lesion within/along uncinate process, grossly stable. Spleen: No splenomegaly. Adrenals: No mass. Kidneys and ureters: Probable LEFT renal cyst. Few too small to characterize lesions within kidneys. No hydronephrosis. Stomach and bowel: Few scattered diverticula within colon. No associated inflammatory stranding. Segmental areas of mild mural thickening vs underdistention of large bowel. No associated inflammatory stranding. No obstruction. Appendix: No findings to suggest acute appendicitis. PELVIS: Bladder: Unremarkable. Reproductive: Hysterectomy. ABDOMEN and PELVIS: Intraperitoneal space: No significant fluid collection. No free air. Bones/joints: Facet osteoarthrosis within lower lumbar spine with anterolisthesis. No acute fracture. Soft tissues: Laparotomy scar. Vasculature: Mild atherosclerotic disease. No aneurysm. Lymph nodes: No pathologically enlarged lymph nodes. IMPRESSION: 1. Mild colitis versus underdistention. Clinical correlation is needed. 2. Pancreatic lesion. Recommend a single follow-up abdominal MRI in 1 year. 3. Incidental/non-acute findings are described above.
[2017-09-05 20:50] VITALS: BP 109/57; PULSE 108; TEMP 99.8
--- NOTE | 2017-09-06 13:39 | CARD ---
APPROVED REPORT EKG Measurement Heart [id number] <Conclusion> Normal sinus rhythm Possible Left atrial enlargement Incomplete right bundle branch block Right ventricular hypertrophy with repolarization abnormality Nonspecific T wave abnormality Abnormal ECG
[2017-09-15 17:05] VITALS: O2SAT 98
== END 2017-09-05 22:37 | disposition home or self-care (01) ==
LOC: H.ER 16:54
DX: K52.9 Noninfective gastroenteritis and colitis, unspecified (principal); Z86.59 Personal history of other mental and behavioral disorders; I10 Essential (primary) hypertension; J45.909 Unspecified asthma, uncomplicated; Z86.73 Personal history of transient ischemic attack (TIA), and cerebral infarction without residual deficits; Z90.710 Acquired absence of both cervix and uterus; Z88.5 Allergy status to narcotic agent; Z79.4 Long term (current) use of insulin; F03.90 Unspecified dementia, unspecified severity, without behavioral disturbance, psychotic disturbance, mood disturbance, and anxiety; M54.9 Dorsalgia, unspecified; G89.29 Other chronic pain; E11.9 Type 2 diabetes mellitus without complications; Z79.82 Long term (current) use of aspirin; I25.10 Atherosclerotic heart disease of native coronary artery without angina pectoris; E78.00 Pure hypercholesterolemia, unspecified
CPT/HCPCS: 74177; 80053; 81003; 82948; 85025; 85610; 85730; 87804; 93005; 96374; 99284; J2405; J7040; Q9967

== ENCOUNTER 2018-02-15 13:37 | Inpatient (IN) | payer MEDICAID ==
[2018-02-15 13:37] VITALS: BMI 32.2
--- NOTE | 2018-02-15 14:00 | ED PDOC ---
HPI:STROKE - Time Time: 13:58 - Historian Historian: Patient - Chief Complaint Chief Complaint: Numbness (Left arm numbness x 2 days Denies chest pain or headache) - Onset Date: 02/13/18 Time: 14:00 Onset: Days (2) - Timing Timing: Improved - Location Locate left: Upper extremity - Radiation Radiation: Face, Jaw - Severity of pain Maximum severity:: Mild Pain Scale:: 0 Severity Current: Mild - Associated Symptoms Associated symptoms:: Numbness - Exacerbated by Exacerbated by:: Nothing - Relieved by Relieved by:: Nothing - TPA Positive for Contraindication: Yes Reason tPA is not being Administered: Sxs greater than 2 days NIHSS Stroke Scale - How Severe is the Stroke Level of Consciousness: 0=Alert LOC to Questions: 0=Both comments correct LOC to commands: 0=Obeys both correctly Best Gaze: 0=Normal Visual: 0=No visual loss Facial: 0=Normal Motor Arm - Left: 0=No drift Motor Arm - Right: 0=No drift Motor Leg - Left: 0=No drift Motor Leg - Right: 0=No drift Limb Ataxia: 0=Absent Sensory: 1=Mild to moderate loss Best Language: 0=No aphasia Dysarthia: 0=Normal articulation Extinction & Inattention (Neglect): 0=Normal, no object Score: 1 rTPA Inclusion/Exclusion - Refusal of Treatment Patient Refused Treatment: No - Inclusion Criteria for Altepase Patient is 18 years or Older: Yes The Clinical Diagnosis of Ischemic Stroke That is Causing a Potentially Disabling Neurological Deficit: No Time of Onset is Well Established to be Less Than 270 Minute Before Treatment Would Begin: No Risk/Benefit Discussed With Patient/Family Member Present: No Past Medical History Vital Signs: Last Vital Signs Temp 98.9 F 02/15/18 13:43 Pulse 97 H 02/15/18 13:43 Resp 18 02/15/18 13:43 BP 142/92 H 02/15/18 13:43 Pulse Ox 98 02/15/18 13:43 - Medical History PMH: Anemia, Anxiety, Arthritis, Asthma, Back Problems (chronic back pain ), Bipolar Disorder, Bronchitis, CAD, Cardia Arrhythmia, CVA, Dementia, Diabetes, HTN, Hypercholesterolemia Denies: Colonic Polyps, Fractures, Chronic Kidney Disease, TIA - Surgical History Surgical History: (2 C Sections) - Family History Family History: States: Unknown Family Hx, Diabetes, Hypertension - Immunization History Hx Tetanus Toxoid Vaccination: No Hx Influenza Vaccination: No Hx Pneumococcal Vaccination: No - Home Medications Home Medications: Ambulatory Orders Medication Instructions Recorded Albuterol Sulfate [Proair Hfa] 2 puff IH Q6H PRN 06/07/13 Metformin HCl 1,000 mg PO BID 06/07/13 Sitagliptin Phosphate [Januvia] 100 mg PO DAILY 06/07/13 Benztropine [Cogentin] 1 mg PO DAILY 05/03/15 Dulaglutide [Trulicity] 0.5 ml SC TH 05/03/15 Gabapentin [Neurontin] 300 mg PO BID 05/03/15 Glimepiride [amaRYL] 4 mg PO BID 05/03/15 Insulin Human NPH [Humulin N] 34 unit SC HS 05/03/15 Insulin Lispro Mix 75/25 [HumaLOG 44 unit SC QAM 05/03/15 Mix 75/25] Insulin Lispro Mix 75/25 [HumaLOG 60 unit SC QPM 05/03/15 Mix 75/25] Metoprolol Tartrate [Lopressor] 25 mg PO BID 05/03/15 Triamterene/Hydrochlorothiazid 1 tab PO DAILY 05/03/15 [Triamterene-Hctz 37.5-25 mg Tb] Allopurinol [Zyloprim] 100 mg PO BID 09/13/15 Aspirin [Ecotrin] 81 mg PO DAILY 09/13/15 Methocarbamol [Robaxin] 1,000 mg PO QID PRN 09/13/15 Potassium Chloride [K-Dur 20 mEq 20 meq PO DAILY 09/13/15 ER Tab] Risperidone [Risperdal] 2 mg PO BID 09/13/15 hydrOXYzine Pamoate [Vistaril] 25 mg PO TID 09/13/15 amLODIPine [Norvasc] 10 mg PO DAILY #0 tab 09/14/15 Enalapril Maleate [Vasotec] 20 mg PO DAILY 11/06/16 Ciprofloxacin [Cipro] 500 mg PO BID #13 tab 09/05/17 Dicyclomine [Bentyl] 20 mg PO QID PRN #10 tab 09/05/17 metroNIDAZOLE [Flagyl] 500 mg PO TID #20 tab 09/05/17 - Allergies Allergies/Adverse Reactions: Allergies Allergy/AdvReac Type Severity Reaction Status Date / Time acetaminophen [From Percocet] Allergy URTICARIA Verified 02/15/18 13:42 oxycodone HCl [From Percocet] Allergy URTICARIA Verified 02/15/18 13:42 strawberry Allergy URTICARIA Verified 02/15/18 13:42 Review of Systems ROS Statement: Except As Marked, All Systems Reviewed And Found Negative Cardiovascular: Negative for: Chest Pain Neurological: Positive for: Numbness (Left arm) Physical Exam - Reviewed Nursing Documentation Reviewed: Yes Vital Signs Reviewed: Yes - Physical Exam Appears: Positive for: Non-toxic, No Acute Distress Head Exam: Positive for: ATRAUMATIC, NORMAL INSPECTION, NORMOCEPHALIC Skin: Positive for: Normal Color, Warm, DRY Eye Exam: Positive for: EOMI, Normal appearance, PERRL ENT: Positive for: Normal ENT Inspection Neck: Positive for: Normal, Painless ROM Cardiovascular/Chest: Positive for: Regular Rate, Rhythm Respiratory: Positive for: CNT, Normal Breath Sounds Gastrointestinal/Abdominal: Positive for: Normal Exam, Soft Back: Positive for: Normal Inspection Extremity: Positive for: Normal ROM Neurologic/Psych: Positive for: Alert, Oriented, Motor/Sensory Deficits (Mild [id number] sensation left upper ext) - Laboratory Results Result Diagrams: 02/15/18 14:28 02/15/18 14:28 - ECG O2 Sat by Pulse Oximetry: 98 Disposition - Clinical Impression Clinical Impression: TIA (transient ischemic attack) - Patient ED Disposition Is Patient to be Admitted: Yes - Disposition Disposition Time: 16:16 Condition: FAIR Forms: [facility] ([place]inian) - Pt Status Changed To: Hospital Disposition Of: Observation - POA Present On Arrival: None
[2018-02-15 14:39] LABS: BASO # 0.1 K/uL (0.0-0.2); BASO % 0.6 % (0.0-2.0); EOS # 0.1 K/uL (0.0-0.7); EOS % 1.2 % (0.0-4.0); HEMOGLOBIN 14.3 g/dL (12.0-16.0); LYMPH # 3.5 K/uL (1.0-4.3); LYMPH % 36.5 % (20.0-40.0); MEAN CELL VOLUME 77.8 fl (81.0-99.0); MEAN CORPUSCULAR HGB CONC 33.4 g/dL (33.0-37.0); MEAN PLATELET VOLUME 9.9 fl (7.2-11.7); MONO # 0.5 K/uL (0.0-0.8); MONO % 5.1 % (0.0-10.0); NEUT # 5.4 K/uL (1.8-7.0); NEUT % 56.6 % (50.0-75.0); NRBC % 0.1 % (0.0-0.0); RBC 5.52 Mil/uL (3.80-5.20); RED CELL DISTRIBUTION WIDTH 15.5 % (11.5-14.5); WHITE BLOOD COUNT 9.5 K/uL (4.8-10.8)
--- NOTE | 2018-02-15 14:46 | RAD ---
Date of service: 02/15/2018 HISTORY: Code Stroke COMPARISON: Portable chest 06/28/2017. FINDINGS: LUNGS: No active pulmonary disease. PLEURA: No significant pleural effusion identified, no pneumothorax apparent. CARDIOVASCULAR: Prominent appearing cardiac silhouette reiterated. OSSEOUS STRUCTURES: No significant abnormalities. VISUALIZED UPPER ABDOMEN: Normal. OTHER FINDINGS: None. IMPRESSION: No pulmonary vascular congestion or active interval pulmonary disease. Prominent cardiac silhouette reiterated.
[2018-02-15] MEDS: Sodium Chloride 0.9% 1,000 ML IV SCH (14:47)
[2018-02-15 15:08] LABS: CALCIUM 9.9 mg/dL (8.4-10.2); GFR AFRICAN-AMERICAN > 60; GFR NON-AFRICAN AMERICAN > 60; HDL CHOLESTEROL 47 MG/DL (30-70)
[2018-02-15 15:10] LABS: ALB/GLOB RATIO 1.2 (1.0-2.1); ALBUMIN 4.6 g/dL (3.5-5.0); ALT/SGPT 17 U/L (9-52); AST/SGOT 42 U/L (14-36); BLOOD UREA NITROGEN 18 mg/dl (7-17)
[2018-02-15 15:14] LABS: PROTHROMBIN TIME 11.5 Seconds (9.8-13.1)
[2018-02-15 15:19] LABS: LDL CHOLESTEROL 158 mg/dL (0-129)
--- NOTE | 2018-02-15 15:52 | CT ---
Date of service: 02/15/2018 PROCEDURE: CT HEAD WITHOUT CONTRAST. HISTORY: Left arm numbness COMPARISON: None available. TECHNIQUE: Axial computed tomography images were obtained through the head/brain without intravenous contrast. Radiation dose: Total exam DLP = 997.74 mGy-cm. This CT exam was performed using one or more of the following dose reduction techniques: Automated exposure control, adjustment of the mA and/or kV according to patient size, and/or use of iterative reconstruction technique. FINDINGS: HEMORRHAGE: No intracranial hemorrhage. BRAIN: Normal patel-white matter differentiation and density are appreciated throughout the cerebrum and cerebellum with the brainstem appearing unremarkable as well. There is no mass effect. There is no suspicious extra-axial fluid collection and the midline brain anatomy appears diffusely unremarkable. VENTRICLES: Unremarkable. No hydrocephalus. CALVARIUM: Unremarkable. PARANASAL SINUSES: Trace right sphenoid sinusitis. MASTOID AIR CELLS: Unremarkable as visualized. No inflammatory changes. OTHER FINDINGS: None. IMPRESSION: Negative CT examination of the brain without contrast. Incidental trace right sphenoid sinusitis.
--- NOTE | 2018-02-15 16:47 | CARD ---
APPROVED REPORT Date of service: 02/15/2018 EKG Measurement Heart [id number] <Conclusion> Normal sinus rhythm Possible Left atrial enlargement Prolonged QT Abnormal ECG
[2018-02-16] MEDS ORDERED: Albuterol HFA 90 mcg/actuation (8 g) IH PRN (00:15)
[2018-02-16] MEDS: Insulin Lispro (humaLOG) 100 Units/ml Inj SC SCH ×4 (06:43→21:29)
[2018-02-16] MEDS: Enoxaparin 40 mg Syringe SC SCH (08:49)
[2018-02-16] MEDS: Multivitamin With Minerals Tab PO SCH (08:51)
[2018-02-16] MEDS: GlipiZIDE 10 mg SR Tab PO SCH (08:52)
[2018-02-16] MEDS: Metoprolol Succinate 100 mg XL Tab PO SCH (08:52)
[2018-02-16] MEDS: Fluticasone-Salmeterol 100-50mcg Diskus IH SCH ×2 (08:53→21:28)
[2018-02-16] MEDS: Insulin Detemir 100 Units/ml Inj SC SCH ×2 (09:00→17:45)
[2018-02-16] MEDS ORDERED: Patient's Own Med (Multivitamin [Multi-Vitamin Daily] 1 TAB) PO SCH (09:00)
[2018-02-16] MEDS ORDERED: Patient's Own Med (Budesonide/Formoterol Fumarate [Symbicort 80-4.5 Mcg Inhaler] 2 PUFF) IH SCH (09:00)
[2018-02-16] MEDS: Pantoprazole 40 mg EC Tab PO SCH (18:11)
[2018-02-16] MEDS: Sodium Chloride 0.9% 1,000 ML IV SCH ×2 (18:22)
--- NOTE | 2018-02-16 19:55 | CP.PCM.CON ---
History of Present Illness - History of Present Illness History of Present Illness: Coverage for Dr Matos who is on consult. Patient is a 52 year old female with a PMH HTN, DM who presents with left sided weakness. The patient states symptoms began 2 days ago when she developed numbness on the left side of her face and weakness of her upper/lower extremity. She states a similar episode occurred when she was in her 20s. She was diagnosed with a CVA and was placed on "blood thinners" The patient is currently in 4N. She states numbness has improved, but the patient has extremity weakness. head CT was negative, but the patient did not tolerate MRI. Review of Systems - Constitutional Constitutional: absent: As Per HPI, Anorexia, Chills, Daytime Sleepiness, Excessive Sweating, Fatigue, Fever, Frequent Falls, Headache, Increased Appetite , Lethargy, Malaise, Night Sweats, Snoring, Sleep Apnea, Weight Gain, Weight Loss, Weakness, Other - EENT Eyes: absent: As Per HPI, Blind Spots, Blurred Vision, Change in Vision, Decreased Night Vision, Diplopia, Discharge, Dry Eye, Exophthalmos, Floaters, Irritation, Itchy Eyes, Loss of Peripheral Vision, Pain, Photophobia, Requires Corrective Lenses, Sees Flashes, Spots in Vision, Tunnel Vision, Other Visual Disturbances, Loss of Vision, Other Ears: absent: As Per HPI, Decreased Hearing, Ear Discharge, Ear Pain, Tinnitus, Abnormal Hearing, Disequilibrium, Dizziness, Other Nose/Mouth/Throat: absent: As Per HPI, Epistaxis, Nasal Congestion, Nasal Discharge, Nasal Obstruction, Nasal Trauma, Nose Pain, Post Nasal Drip, Sinus Pain, Sinus Pressure, Bleeding Gums, Change in Voice, Dental Pain, Dry Mouth, Dysphagia, Halitosis, Hoarsness, Lip Swelling, Mouth Lesions, Mouth Pain, Odynophagia, Sore Throat, Throat Swelling, Tongue Swelling, Facial Pain, Neck Pain, Neck Mass, Other - Breasts Breasts: absent: As Per HPI, Change in Shape, Mass, Pain, Nipple Discharge, Nipple Inversion, Skin Changes, Swelling, Other - Cardiovascular Cardiovascular: absent: As Per HPI, Acrocyanosis, Chest Pain, Chest Pain at Rest , Chest Pain with Activity, Claudication, Diaphoresis, Dyspnea, Dyspnea on Exertion, Edema, Irregular Heart Rhythm, Pain Radiating to Arm/Neck/Jaw, Leg Edema, Leg Ulcers, Lightheadedness, Orthopnea, Palpitations, Paroxysmal Nocturnal Dyspnea, Pedal Edema, Radiating Pain, Rapid Heart Rate, Slow Heart Rate, Syncope, Other - Respiratory Respiratory: absent: As Per HPI, Cough, Dyspnea, Hemoptysis, Dyspnea on Exertion , Wheezing, Snoring, Stridor, Pain on Inspiration, Chest Congestion, Excessive Mucous Production, Change in Mucous Color, Pain with Coughing, Other - Gastrointestinal Gastrointestinal: absent: As Per HPI, Abdominal Pain, Belching, Bloating, Change in Bowel Habits, Change in Stool Character, Coffee Ground Emesis, Constipation, Cramping, Diarrhea, Dyspepsia, Dysphagia, Early Satiety, Excessive Flatus, Fecal Incontinence, Heartburn, Hematemesis, Hematochezia, Loose Stools, Melena, Nausea, Odynophagia, Temesmus, Vomiting, Other - Genitourinary Genitourinary: absent: As Per HPI, Change in Urinary Stream, Difficulty Urinating, Dysuria, Flank Pain, Hematuria, Pyuria, Nocturia, Urinary Incontinence, Urinary Frequency, Urinary Hesitance, Urinary Urgency, Voiding Freq/Small Amts, Freq UTI, Hx Renal/Bladder Calculi, Hx /Renal Surgery, Bladder Distension, Other - Menstruation Menstruation: absent: As Per HPI, Amenorrhea, Amenorrhea/ Control, Currently Menstual, Cycle <21 Days, Cycle >35 Days, Cycle Variable, Menses 1-7 Days, Menses >/= 8 Days, Menses Variable, Cycle > 4 Weeks Between, No Menses for 6 Months, Heavy Menses, Light Menses, Normal Menses, Spotting Between Cycles , S/P Hysterectomy, Menopausal, Post Menopausal, Premenarche, Abnormal Vaginal Bleeding, Dysmenorrhea, Other - Musculoskeletal Musculoskeletal: Muscle Weakness, Numbness - Integumentary Integumentary: absent: As Per HPI, Acne, Alopecia, Bleeding Lesions, Change in Hair, Change in Nails, Change in Pigmentation, Changing Lesions, Dry Skin, Erythema, Furuncle, Hirsutism, Lesions, New Lesions, Non-Healing Lesions, Photosensitivity, Pruritus, Rash, Skin Pain, Skin Ulcer, Sores, Striae, Swelling , Unusual Bruising, Wounds, Jaundice, Other - Neurological Neurological: Focal Weakness - Psychiatric Psychiatric: absent: As Per HPI, Abnormal Sleep Pattern, Anhedonia, Anxiety, Auditory Hallucinations, Behavioral Changes, Change in Appetite, Change in Libido, Confusion, Depression, Difficulty Concentrating, Hallucinations, Homicidal Ideation, Hopelessness, Irritability, Memory Loss, Mood Swings, Panic Attacks, Paranoia, Suicidal Ideation, Visual Hallucinations, Tactile Hallucinations, Other - Endocrine Endocrine: absent: As Per HPI, Change in Body Appearance, Change in Libido, Cold Intolorance, Deepening of Voice, Excessive Sweating, Fatigue, Flushing, Heat Intolorance, Increase in Ring/Shoe/Hat Size, Palpitations, Polydipsia, Polyphagia, Polyuria, Other - Hematologic/Lymphatic Hematologic: absent: As Per HPI, Easy Bleeding, Easy Bruising, Lymphadenopathy, Other Past Patient History - Infectious Disease Hx of Infectious Diseases: None - Past Medical History & Family History Past Medical History?: Yes - Past Social History Smoking Status: Former Smoker - CARDIAC Hx Cardiac Disorders: Yes (CAD, cardiac arrythmia, HTN, high chol.) - PULMONARY Hx Respiratory Disorders: Yes (asthma, bronchitis) - NEUROLOGICAL Hx Neurological Disorder: Yes (TIA) - HEENT Hx HEENT Problems: No - RENAL Hx Chronic Kidney Disease: No - ENDOCRINE/METABOLIC Hx Endocrine Disorders: Yes (DM) - HEMATOLOGICAL/ONCOLOGICAL Hx Blood Disorders: Yes (anemia) - INTEGUMENTARY Hx Dermatological Problems: No - MUSCULOSKELETAL/RHEUMATOLOGICAL Hx Musculoskeletal Disorders: Yes (arthitis, chronic back pain) Hx Falls: Yes - GASTROINTESTINAL Hx Gastrointestinal Disorders: No - GENITOURINARY/GYNECOLOGICAL Hx Genitourinary Disorders: No - PSYCHIATRIC Hx Psychophysiologic Disorder: Yes (anxiety, bi-polar) Hx Substance Use: Yes (marijuana) - SURGICAL HISTORY Hx Surgeries: Yes Hx Hysterectomy: Yes - ANESTHESIA Hx Anesthesia: Yes Hx Anesthesia Reactions: No Hx Malignant Hyperthermia: No Meds Allergies/Adverse Reactions: Allergies Allergy/AdvReac Type Severity Reaction Status Date / Time acetaminophen [From Percocet] Allergy URTICARIA Verified 02/15/18 13:42 oxycodone HCl [From Percocet] Allergy URTICARIA Verified 02/15/18 13:42 strawberry Allergy URTICARIA Verified 02/15/18 13:42 - Medications Medications: Current Medications Albuterol (Ventolin Hfa 90 Mcg/Actuation (8 G)) 2 puff IH Q6 PRN PRN Reason: Shortness of Breath Allopurinol (Zyloprim) 100 mg PO Q12 [facility] Last Admin: 02/16/18 08:51 Dose: 100 mg Amlodipine Besylate (Norvasc) 10 mg PO DAILY [facility] Last Admin: 02/16/18 08:51 Dose: 10 mg Aspirin (Ecotrin) 81 mg PO DAILY [facility] Last Admin: 02/16/18 13:00 Dose: 81 mg Atorvastatin Calcium (Lipitor) 20 mg PO DAILY [facility] Last Admin: 02/16/18 08:52 Dose: 20 mg Benztropine Mesylate (Cogentin) 0.5 mg PO DAILY [facility] Last Admin: 02/16/18 09:38 Dose: 0.5 mg Enoxaparin Sodium (Lovenox) 40 mg SC DAILY [facility] PRN Reason: Protocol Last Admin: 02/16/18 08:49 Dose: 40 mg Gabapentin (Neurontin) 300 mg PO Q12 [facility] Last Admin: 02/16/18 08:52 Dose: 300 mg Glipizide (Glucotrol Xl) 10 mg PO BRK [facility] Last Admin: 02/16/18 08:52 Dose: 10 mg Home Med (Empagliflozin [Jardiance]) 10 mg PO DAILY [facility] Last Admin: 02/16/18 15:15 Dose: 10 mg Hydroxyzine Pamoate (Vistaril) 25 mg PO Q8 [facility] Last Admin: 02/16/18 18:14 Dose: Not Given Sodium Chloride (Sodium Chloride 0.9%) 1,000 mls @ 100 mls/hr IV .Q10H [facility] Last Admin: 02/16/18 18:22 Dose: 100 mls/hr Ibuprofen (Motrin Tab) 600 mg PO Q6 PRN PRN Reason: Pain, moderate (4-7) Last Admin: 02/16/18 18:10 Dose: 600 mg Insulin Detemir (Levemir) 42 units SC BID [facility] Last Admin: 02/16/18 17:45 Dose: 42 units Insulin Human Lispro (Humalog) 0 units SC ACHS [facility] PRN Reason: Protocol Last Admin: 02/16/18 16:50 Dose: 2 u Losartan Potassium (Cozaar) 100 mg PO DAILY [facility] Last Admin: 02/16/18 08:51 Dose: 100 mg Metformin HCl (Glucophage) 1,000 mg PO BID [facility] Last Admin: 02/16/18 17:50 Dose: 1,000 mg Metoprolol Succinate (Toprol Xl) 100 mg PO DAILY [facility] Last Admin: 02/16/18 08:52 Dose: 100 mg Montelukast Sodium (Singulair) 10 mg PO DAILY [facility] Last Admin: 02/16/18 08:53 Dose: 10 mg Multivitamins/Minerals (Therapeutic-M Tab) 1 tab PO DAILY [facility] Last Admin: 02/16/18 08:51 Dose: 1 tab Pantoprazole Sodium (Protonix Ec Tab) 40 mg PO DAILY [facility] Last Admin: 02/16/18 18:11 Dose: 40 mg Risperidone (Risperdal Tab) 2 mg PO Q12 [facility] Last Admin: 02/16/18 08:50 Dose: 2 mg Fluticasone/Salmeterol (Advair Diskus 100/50) 1 puff IH Q12 [facility] Last Admin: 02/16/18 08:53 Dose: 1 puff Sitagliptin Phosphate (Januvia) 100 mg PO DAILY [facility] Last Admin: 02/16/18 08:50 Dose: 100 mg Tizanidine HCl (Zanaflex) 4 mg PO HS PRN PRN Reason: Muscle spasm Physical Exam - Constitutional Appears: Non-toxic - Head Exam Head Exam: NORMAL INSPECTION - Eye Exam Eye Exam: Normal appearance - ENT Exam ENT Exam: Mucous Membranes Moist - Neck Exam Neck exam: Positive for: Normal Inspection - Respiratory Exam Respiratory Exam: NORMAL BREATHING PATTERN - Cardiovascular Exam Cardiovascular Exam: REGULAR RHYTHM - GI/Abdominal Exam GI & Abdominal Exam: Normal Bowel Sounds - Rectal Exam Rectal Exam: Deferred - Extremities Exam Extremities exam: Positive for: normal inspection. Negative for: pedal edema - Back Exam Back exam: NORMAL INSPECTION - Neurological Exam Neurological exam: Motor Sensory Deficit - Psychiatric Exam Psychiatric exam: Normal Affect - Skin Skin Exam: Normal Color Results - Vital Signs Recent Vital Signs: Last Vital Signs Temp 98.8 F 02/16/18 19:28 Pulse 102 H 02/16/18 19:28 Resp 20 02/16/18 19:28 BP 127/80 02/16/18 19:28 Pulse Ox 99 02/16/18 19:28 - Labs Result Diagrams: 02/15/18 14:28 02/15/18 14:28 Labs: Laboratory Results - last 24 hr 02/15/18 02/15/18 02/15/18 14:28 14:28 22:05 POC Glucose (mg/dL) 209 H Hemoglobin A1c 11.0 H Blood Type Cancelled Antibody Screen Cancelled BBK History Checked Cancelled 02/16/18 02/16/18 05:37 11:18 POC Glucose (mg/dL) 204 H 316 H Hemoglobin A1c Blood Type Antibody Screen BBK History Checked - EKG Data EKG Interpreted by: Myself EKG shows normal: Sinus rhythm Assessment & Plan (1) CVA (cerebrovascular accident) Assessment and Plan: Echocarrdiogram reviewed. there is mild to moderate LVH. In the short axis view there is s density within the left atrium which may represent thrombus. Given CVA elena would benefit from anticoagulation. Would need neurpo input and MRI to assess if there is an intracranial lesion with the possibility of hemorrhagic conversion. Status: Acute (2) Hypertension Assessment and Plan: blood pressure control Status: Acute
--- NOTE | 2018-02-16 23:07 | CP.PCM.CON ---
History of Present Illness - History of Present Illness History of Present Illness: 52 yr old woman, with pmh of HTN, DM, who presented with left arm numbness and weakness, not thought to be a TPA candidate due to uncertain timing of event. The patient states symptoms began 2 days ago when she developed numbness on the left side of her face and weakness of her upper/lower extremity. As per chart: She states a similar episode occurred when she was in her 20s. She was diagnosed with a CVA and was placed on "blood thinners" The patient is currently in 4N. She states numbness has improved, but the patient has extremity weakness. head CT was negative, but the patient did not tolerate MRI. PMH/PSH: As above FH/SH: no tobacco, no etoh. ALL: nkda. On exam: AAOX3. Speech fluent. PERRL. CN 2-12 normal. Decreased sensation in left upper and lower limb. Strength however, is normal. Gait was not tested. Past Patient History - Infectious Disease Hx of Infectious Diseases: None - Past Medical History & Family History Past Medical History?: Yes - Past Social History Smoking Status: Former Smoker - CARDIAC Hx Cardiac Disorders: Yes (CAD, cardiac arrythmia, HTN, high chol.) - PULMONARY Hx Respiratory Disorders: Yes (asthma, bronchitis) - NEUROLOGICAL Hx Neurological Disorder: Yes (TIA) - HEENT Hx HEENT Problems: No - RENAL Hx Chronic Kidney Disease: No - ENDOCRINE/METABOLIC Hx Endocrine Disorders: Yes (DM) - HEMATOLOGICAL/ONCOLOGICAL Hx Blood Disorders: Yes (anemia) - INTEGUMENTARY Hx Dermatological Problems: No - MUSCULOSKELETAL/RHEUMATOLOGICAL Hx Musculoskeletal Disorders: Yes (arthitis, chronic back pain) Hx Falls: Yes - GASTROINTESTINAL Hx Gastrointestinal Disorders: No - GENITOURINARY/GYNECOLOGICAL Hx Genitourinary Disorders: No - PSYCHIATRIC Hx Psychophysiologic Disorder: Yes (anxiety, bi-polar) Hx Substance Use: Yes (marijuana) - SURGICAL HISTORY Hx Surgeries: Yes Hx Hysterectomy: Yes - ANESTHESIA Hx Anesthesia: Yes Hx Anesthesia Reactions: No Hx Malignant Hyperthermia: No Meds Allergies/Adverse Reactions: Allergies Allergy/AdvReac Type Severity Reaction Status Date / Time acetaminophen [From Percocet] Allergy URTICARIA Verified 02/15/18 13:42 oxycodone HCl [From Percocet] Allergy URTICARIA Verified 02/15/18 13:42 strawberry Allergy URTICARIA Verified 02/15/18 13:42 - Medications Medications: Current Medications Albuterol (Ventolin Hfa 90 Mcg/Actuation (8 G)) 2 puff IH Q6 PRN PRN Reason: Shortness of Breath Allopurinol (Zyloprim) 100 mg PO Q12 [facility] Last Admin: 02/16/18 21:28 Dose: 100 mg Amlodipine Besylate (Norvasc) 10 mg PO DAILY [facility] Last Admin: 02/16/18 08:51 Dose: 10 mg Aspirin (Ecotrin) 81 mg PO DAILY [facility] Last Admin: 02/16/18 13:00 Dose: 81 mg Atorvastatin Calcium (Lipitor) 20 mg PO DAILY [facility] Last Admin: 02/16/18 08:52 Dose: 20 mg Benztropine Mesylate (Cogentin) 0.5 mg PO DAILY [facility] Last Admin: 02/16/18 09:38 Dose: 0.5 mg Enoxaparin Sodium (Lovenox) 40 mg SC DAILY [facility] PRN Reason: Protocol Last Admin: 02/16/18 08:49 Dose: 40 mg Gabapentin (Neurontin) 300 mg PO Q12 [facility] Last Admin: 02/16/18 08:52 Dose: 300 mg Glipizide (Glucotrol Xl) 10 mg PO BRK [facility] Last Admin: 02/16/18 08:52 Dose: 10 mg Home Med (Empagliflozin [Jardiance]) 10 mg PO DAILY [facility] Last Admin: 02/16/18 15:15 Dose: 10 mg Hydroxyzine Pamoate (Vistaril) 25 mg PO Q8 [facility] Last Admin: 02/16/18 18:14 Dose: Not Given Sodium Chloride (Sodium Chloride 0.9%) 1,000 mls @ 100 mls/hr IV .Q10H [facility] Last Admin: 02/16/18 18:22 Dose: 100 mls/hr Ibuprofen (Motrin Tab) 600 mg PO Q6 PRN PRN Reason: Pain, moderate (4-7) Last Admin: 02/16/18 18:10 Dose: 600 mg Insulin Detemir (Levemir) 42 units SC BID [facility] Last Admin: 02/16/18 17:45 Dose: 42 units Insulin Human Lispro (Humalog) 0 units SC ACHS [facility] PRN Reason: Protocol Last Admin: 02/16/18 21:29 Dose: Not Given Losartan Potassium (Cozaar) 100 mg PO DAILY [facility] Last Admin: 02/16/18 08:51 Dose: 100 mg Metformin HCl (Glucophage) 1,000 mg PO BID [facility] Last Admin: 02/16/18 17:50 Dose: 1,000 mg Metoprolol Succinate (Toprol Xl) 100 mg PO DAILY [facility] Last Admin: 02/16/18 08:52 Dose: 100 mg Montelukast Sodium (Singulair) 10 mg PO DAILY [facility] Last Admin: 02/16/18 08:53 Dose: 10 mg Multivitamins/Minerals (Therapeutic-M Tab) 1 tab PO DAILY [facility] Last Admin: 02/16/18 08:51 Dose: 1 tab Pantoprazole Sodium (Protonix Ec Tab) 40 mg PO DAILY [facility] Last Admin: 02/16/18 18:11 Dose: 40 mg Risperidone (Risperdal Tab) 2 mg PO Q12 [facility] Last Admin: 02/16/18 08:50 Dose: 2 mg Fluticasone/Salmeterol (Advair Diskus 100/50) 1 puff IH Q12 [facility] Last Admin: 02/16/18 21:28 Dose: 1 puff Sitagliptin Phosphate (Januvia) 100 mg PO DAILY [facility] Last Admin: 02/16/18 08:50 Dose: 100 mg Tizanidine HCl (Zanaflex) 4 mg PO HS PRN PRN Reason: Muscle spasm Results - Vital Signs Recent Vital Signs: Last Vital Signs Temp 98.8 F 02/16/18 19:28 Pulse 107 H 02/16/18 21:00 Resp 20 02/16/18 19:28 BP 127/80 02/16/18 19:28 Pulse Ox 99 02/16/18 19:28 - Labs Result Diagrams: 02/15/18 14:28 02/15/18 14:28 Labs: Laboratory Results - last 24 hr 02/15/18 02/16/18 02/16/18 14:28 05:37 11:18 POC Glucose (mg/dL) 204 H 316 H Blood Type Cancelled Antibody Screen Cancelled BBK History Checked Cancelled 02/16/18 16:02 POC Glucose (mg/dL) 234 H Blood Type Antibody Screen BBK History Checked Assessment & Plan - Assessment and Plan (Free Text) Assessment: 52 yr old woman who may have had possible TIA, but we are not able to obtain MRI Brain. PLan; 1. Repeat CT scan head. 2., Continue aspirin and plavix. 3. ECHO Thank you
[2018-02-17 03:37] LABS: SQUAMOUS EPITHIAL 4 /hpf (0-5); URINE BILIRUBIN NEGATIVE (NEGATIVE); URINE BLOOD NEGATIVE (NEGATIVE); URINE CLARITY SLIGHTY-CLOUDY (Clear); URINE COLOR YELLOW (YELLOW); URINE GLUCOSE (UA) >=500 mg/dL (Normal); URINE LEUKOCYTE ESTERASE NEG Leu/uL (Negative); URINE PROTEIN 30 mg/dL (NEGATIVE); URINE UROBILINOGEN 0.2-1.0 mg/dL (0.2-1.0)
[2018-02-17 04:15] LABS: BARBITURATES, UR NEGATIVE (NEGATIVE); BENZODIAZEPINES, UR NEGATIVE (NEGATIVE); OPIATES, UR NEGATIVE (NEGATIVE); PHENCYCLIDINE, UR NEGATIVE (NEGATIVE)
[2018-02-17 06:17] LABS: HEMOGLOBIN 12.3 g/dL (12.0-16.0); MEAN CELL VOLUME 79.7 fl (81.0-99.0); MEAN CORPUSCULAR HEMOGLOBIN 26.5 pg (27.0-31.0); MEAN CORPUSCULAR HGB CONC 33.2 g/dL (33.0-37.0); RBC 4.63 Mil/uL (3.80-5.20); RED CELL DISTRIBUTION WIDTH 15.7 % (11.5-14.5); WHITE BLOOD COUNT 8.8 K/uL (4.8-10.8)
[2018-02-17 06:49] LABS: BLOOD UREA NITROGEN 20 mg/dl (7-17); CALCIUM 9.3 mg/dL (8.4-10.2); GFR AFRICAN-AMERICAN > 60; GFR NON-AFRICAN AMERICAN > 60
[2018-02-17] MEDS: Sodium Chloride 0.9% 1,000 ML IV SCH ×2 (07:30→17:51)
[2018-02-17] MEDS: GlipiZIDE 10 mg SR Tab PO SCH (08:24)
[2018-02-17] MEDS: Insulin Lispro (humaLOG) 100 Units/ml Inj SC SCH ×4 (08:28→22:58)
[2018-02-17] MEDS: Insulin Detemir 100 Units/ml Inj SC SCH ×2 (09:00→17:48)
[2018-02-17] MEDS: Enoxaparin 40 mg Syringe SC SCH (10:23)
[2018-02-17] MEDS: Multivitamin With Minerals Tab PO SCH (10:24)
[2018-02-17] MEDS: Fluticasone-Salmeterol 100-50mcg Diskus IH SCH ×2 (10:28→21:58)
[2018-02-17] MEDS: Metoprolol Succinate 100 mg XL Tab PO SCH (10:29)
[2018-02-17] MEDS: Pantoprazole 40 mg EC Tab PO SCH (10:35)
--- NOTE | 2018-02-17 12:06 | CARD ---
APPROVED REPORT Date of service: 02/16/2018 EXAM: Two-dimensional and M-mode echocardiogram with Doppler and color Doppler. Other Information Quality : GoodRhythm : NSR INDICATION CVA/TIA Hypertension/HCVD 2D DIMENSIONS IVSd1.24 (0.7-1.1cm)LVDd4.56 (3.9-5.9cm) LVOT Diameter2.00 (1.8-2.4cm)PWd1.04 (0.7-1.1cm) IVSs1.65 (0.8-1.2cm)LVDs3.07 (2.5-4.0cm) FS (%) 32.7 %PWs2.17 (0.8-1.2cm) M-Mode DIMENSIONS Left Atrium (MM)3.29 (2.5-4.0cm)IVSd1.38 (0.7-1.1cm) Aortic Root2.76 (2.2-3.7cm)LVDd4.88 (4.0-5.6cm) Aortic Cusp Exc.2.00 (1.5-2.0cm)PWd1.50 (0.7-1.1cm) IVSs1.97 cmFS (%) 40 % LVDs2.91 (2.0-3.8cm)PWs2.00 cm Aortic Valve AoV Peak Gjfgydyu815.4cm/sAoV VTI16.9cmAO Peak GR.7mmHg LVOT Peak Mvjbfbck829.0cm/sLVOT VTI15.06cmAO Mean GR.4mmHg MARGARITA (VMAX)1.48in4QUO (VTI)1.47cm2 Mitral Valve MV E Xviijyqi84.2cm/sMV DECEL [id number] A Mqokitbl05.1cm/s MV TJR05tuF/A ratio0.7MVA (PHT)3.39cm2 TDI Lateral E' Peak V4.89cm/sMedial E' Peak V3.91cm/sE/Lateral E'10.3 E/Medial E'12.8 Pulmonary Valve PV Peak Pbugtofp54.0cm/s LEFT VENTRICLE The left ventricle is normal size. There is moderate concentric left ventricular hypertrophy. The left ventricular function is normal. The left ventricular ejection fraction is within the normal range. LVEF 65% There is normal LV segmental wall motion. Tissue Doppler imaging reveals abnormal left ventricular diastolic dysfunction. Transmitral Doppler flow pattern is Grade I-abnormal relaxation pattern. No left ventricle thrombus noted on this study. There is no ventricular septal defect visualized. There is no left ventricular aneurysm. There is no mass noted in the left ventricle. RIGHT VENTRICLE The right ventricle is normal size. The right ventricular systolic function is normal. ATRIA The left atrium is mildly dilated. The right atrium size is normal. The interatrial septum is intact with no evidence for an atrial septal defect. AORTIC VALVE The aortic valve is normal in structure. No aortic regurgitation is present. There is no aortic valvular stenosis. There is no aortic valvular vegetation. MITRAL VALVE The mitral valve is normal in structure. There is no evidence of mitral valve prolapse. There is no mitral valve stenosis. There is no mitral valve regurgitation noted. TRICUSPID VALVE The tricuspid valve is normal in structure. There is no tricuspid valve regurgitation noted. There is no tricuspid valve prolapse or vegetation. There is no tricuspid valve stenosis. PULMONIC VALVE The pulmonary valve is normal in structure. There is no pulmonic valvular regurgitation. GREAT VESSELS The aortic root is normal in size. The IVC is normal in size and collapses >50% with inspiration. PERICARDIAL EFFUSION The pericardium appears normal. <Conclusion> The left ventricle is normal size. There is moderate concentric left ventricular hypertrophy. The left ventricular function is normal. The left ventricular ejection fraction is within the normal range. LVEF 65% The left atrium is mildly dilated.
--- NOTE | 2018-02-17 15:10 | CP.PCM.PN ---
Subjective - Date & Time of Evaluation Date of Evaluation: 02/17/18 Time of Evaluation: 15:10 - Subjective Subjective: PT WO CP OR SOB. CONTINUED SENSORY DEFICIT IN LUE HOWEVER IMPROVING. CT X 2 NEGATIVE. PT HAS HAD 2 EPISODES 16 YEARS APART. Objective - Vital Signs/Intake and Output Vital Signs (last 24 hours): Temp Pulse Resp BP Pulse Ox 97.8 F 87 20 150/89 99 02/17/18 12:00 02/17/18 12:00 02/17/18 12:00 02/17/18 12:00 02/17/18 12:00 - Medications Medications: Current Medications Albuterol (Ventolin Hfa 90 Mcg/Actuation (8 G)) 2 puff IH Q6 PRN PRN Reason: Shortness of Breath Allopurinol (Zyloprim) 100 mg PO Q12 [facility] Last Admin: 02/17/18 10:25 Dose: 100 mg Amlodipine Besylate (Norvasc) 10 mg PO DAILY [facility] Last Admin: 02/17/18 10:26 Dose: 10 mg Aspirin (Ecotrin) 81 mg PO DAILY [facility] Last Admin: 02/17/18 10:26 Dose: 81 mg Atorvastatin Calcium (Lipitor) 20 mg PO DAILY [facility] Last Admin: 02/17/18 10:27 Dose: 20 mg Benztropine Mesylate (Cogentin) 0.5 mg PO DAILY [facility] Last Admin: 02/16/18 09:38 Dose: 0.5 mg Enoxaparin Sodium (Lovenox) 40 mg SC DAILY [facility] PRN Reason: Protocol Last Admin: 02/17/18 10:23 Dose: 40 mg Gabapentin (Neurontin) 300 mg PO Q12 [facility] Last Admin: 02/16/18 08:52 Dose: 300 mg Glipizide (Glucotrol Xl) 10 mg PO BRK [facility] Last Admin: 02/17/18 08:24 Dose: 10 mg Home Med (Empagliflozin [Jardiance]) 10 mg PO DAILY [facility] Last Admin: 02/17/18 10:24 Dose: 10 mg Hydroxyzine Pamoate (Vistaril) 25 mg PO Q8 [facility] Last Admin: 02/17/18 05:10 Dose: 25 mg Sodium Chloride (Sodium Chloride 0.9%) 1,000 mls @ 100 mls/hr IV .Q10H [facility] Last Admin: 02/16/18 18:22 Dose: 100 mls/hr Ibuprofen (Motrin Tab) 600 mg PO Q6 PRN PRN Reason: Pain, moderate (4-7) Last Admin: 02/16/18 18:10 Dose: 600 mg Insulin Detemir (Levemir) 42 units SC BID [facility] Last Admin: 02/17/18 09:00 Dose: 42 units Insulin Human Lispro (Humalog) 0 units SC ACHS [facility] PRN Reason: Protocol Last Admin: 02/17/18 12:20 Dose: 1 u Losartan Potassium (Cozaar) 100 mg PO DAILY [facility] Last Admin: 02/17/18 10:25 Dose: 100 mg Metformin HCl (Glucophage) 1,000 mg PO BID [facility] Last Admin: 02/17/18 10:26 Dose: 1,000 mg Metoprolol Succinate (Toprol Xl) 100 mg PO DAILY [facility] Last Admin: 02/17/18 10:29 Dose: 100 mg Montelukast Sodium (Singulair) 10 mg PO DAILY [facility] Last Admin: 02/17/18 10:29 Dose: 10 mg Multivitamins/Minerals (Therapeutic-M Tab) 1 tab PO DAILY [facility] Last Admin: 02/17/18 10:24 Dose: 1 tab Pantoprazole Sodium (Protonix Ec Tab) 40 mg PO DAILY [facility] Last Admin: 02/17/18 10:35 Dose: 40 mg Risperidone (Risperdal Tab) 2 mg PO Q12 [facility] Last Admin: 02/16/18 08:50 Dose: 2 mg Fluticasone/Salmeterol (Advair Diskus 100/50) 1 puff IH Q12 [facility] Last Admin: 02/17/18 10:28 Dose: 1 puff Sitagliptin Phosphate (Januvia) 100 mg PO DAILY [facility] Last Admin: 02/17/18 10:25 Dose: 100 mg Tizanidine HCl (Zanaflex) 4 mg PO HS PRN PRN Reason: Muscle spasm - Labs Labs: 02/17/18 05:30 02/17/18 05:30 PT 11.5 Seconds (9.8-13.1) 02/15/18 14:28 INR 1.0 (0.9-1.2) 02/15/18 14:28 APTT 34.0 Seconds (25.6-37.1) 02/15/18 14:28 - Constitutional Appears: Well - Head Exam Head Exam: ATRAUMATIC, NORMAL INSPECTION, NORMOCEPHALIC - Eye Exam Eye Exam: EOMI, Normal appearance, PERRL. absent: Conjunctival injection, Nystagmus, Periorbital swelling, Periorbital tenderness, Scleral icterus Pupil Exam: NORMAL ACCOMODATION, PERRL - ENT Exam ENT Exam: Mucous Membranes Moist, Normal Exam. absent: Mucous Membranes Dry, Normal External Ear Exam, Normal Oropharynx, TM's Normal Bilaterally - Neck Exam Neck Exam: Full ROM, Normal Inspection. absent: Lymphadenopathy, Meningismus, Tenderness, Thyromegaly - Respiratory Exam Respiratory Exam: Clear to Ausculation Bilateral, NORMAL BREATHING PATTERN. absent: Accessory Muscle Use, Chest Wall Tenderness, Decreased Breath Sounds, Prolonged Expiratory Phase, Rales, Rhonchi, Wheezes, Respiratory Distress, Stridor - Cardiovascular Exam Cardiovascular Exam: REGULAR RHYTHM, +S1, +S2, Murmur. absent: Bradycardia, Tachycardia, Clicks, Diastolic murmur, Gallop, Irregular Rhythm, JVD, RRR, Rubs , +S4 - GI/Abdominal Exam GI & Abdominal Exam: Soft, Normal Bowel Sounds. absent: Bruit, Distended, Firm , Guarding, Rigid, Tenderness, Diminished Bowel Sounds, Hernia, Hyperactive Bowel Sounds, Hypoactive Bowel Sounds, Organomegaly, Pulsatile Mass, Rebound, Mass - Rectal Exam Rectal Exam: Deferred - Extremities Exam Extremities Exam: Full ROM, Normal Capillary Refill, Normal Inspection. absent : Calf Tenderness, Joint Swelling, Pedal Edema, Tenderness - Back Exam Back Exam: NORMAL INSPECTION - Neurological Exam Neurological Exam: Alert, Awake, CN II-XII Intact, Normal Gait, Oriented x3. absent: Abnormal Gait, Altered, Motor Sensory Deficit, Reflexes Normal - Psychiatric Exam Psychiatric exam: Normal Affect, Normal Mood. absent: Agitated, Anxious, Depressed, Flat Affect, Homicidal Ideation, Manic, Suicidal Ideation - Skin Skin Exam: Dry, Intact, Normal Color, Warm. absent: Abrasion, Cyanosis, Diaphoretic, Erythema, Mottled, Pallor, Pallor, Petechiae, Rash, Urticaria, Vesicles Assessment and Plan (1) TIA (transient ischemic attack) Status: Acute (2) Diabetes 1.5, managed as type 2 Status: Acute (3) Hypertension Status: Acute (4) Noncompliance Status: Acute - Assessment and Plan (Free Text) Plan: PT'S ECHO REVIEWED. RIGHT SIDED SHADOWING APPEARS TO BE ARTIFACT. CLINICALLY IT DOES NOT FIT THE PICTURE OF TIA OR CVA A RIGHT SIDED EMBOLI WOULD CAUSE PE NOT CVA IN ABSENCE OF ASD OR PFO. PT WAS ON ASA OUTPT. SHE DOES FOLLOW WITH A EXTENDER OUTPT. GIVEN THE LACK OF ARRYTHMIAS ON TELE, NORMAL SIZED CARDIAC CHAMBERS AND EPISODES BEING 16 YEARS APART THE PT DOES NOT REQUIRE COLLETTE. PT IS CLINICALLY STABLE FOR D/C FOR F/U WITH CARDIOLOGY IN 2 WEEKS. CONT ASA. D/W DR BAUER AND RN.
--- NOTE | 2018-02-17 15:48 | CT ---
Date of service: 02/17/2018 PROCEDURE: CT HEAD WITHOUT CONTRAST. HISTORY: tia COMPARISON: Noncontrast head CT 02/15/2018. TECHNIQUE: Axial computed tomography images were obtained through the head/brain without intravenous contrast. Radiation dose: Total exam DLP = 842.21 mGy-cm. This CT exam was performed using one or more of the following dose reduction techniques: Automated exposure control, adjustment of the mA and/or kV according to patient size, and/or use of iterative reconstruction technique. FINDINGS: HEMORRHAGE: No intracranial hemorrhage. BRAIN: No interval cortical edema or mass effect above or below the tentorium including throughout the brainstem. Normal corticomedullary differentiation is reiterated with the sulci and cisterns diffusely unremarkable. VENTRICLES: Unremarkable. No hydrocephalus. CALVARIUM: Unremarkable. PARANASAL SINUSES: Limited right sphenoid sinusitis reiterated. MASTOID AIR CELLS: Unremarkable as visualized. No inflammatory changes. OTHER FINDINGS: None. IMPRESSION: Stable unremarkable noncontrast head CT. MRI remains available for follow-up if clinically warranted. Incidental limited right sphenoid sinusitis.
[2018-02-18 00:07] VITALS: RESP 18
--- NOTE | 2018-02-18 08:56 | CP.PCM.HP ---
History of Present Illness - History of Present Illness History of Present Illness: CC: Left sided Numbness and Weakness HPI: A 52 year old female with a PMH HTN, DM who presents with left sided weakness. The patient states symptoms began 2 days ago when she developed numbness on the left side of her face and weakness of her upper/lower extremity. She states a similar episode occurred when she was in her 20s. She was diagnosed with a CVA and was placed on "blood thinners" The patient is currently in 4N. She states numbness has improved, but the patient has extremity weakness. head CT was negative, but the patient did not tolerate MRI. Currently on ASA and Plavix Present on Admission - Present on Admission Any Indicators Present on Admission: No Review of Systems - Review of Systems All systems: reviewed and no additional remarkable complaints except Past Patient History - Infectious Disease Hx of Infectious Diseases: None - Past Medical History & Family History Past Medical History?: Yes - Past Social History Smoking Status: Former Smoker Alcohol: None Drugs: Denies - CARDIAC Hx Cardiac Disorders: Yes Hx Hypercholesterolemia: Yes Hx Hypertension: Yes - PULMONARY Hx Respiratory Disorders: Yes (asthma, bronchitis) - NEUROLOGICAL HX Cerebrovascular Accident: Yes - HEENT Hx HEENT Problems: No - RENAL Hx Chronic Kidney Disease: No - ENDOCRINE/METABOLIC Hx Diabetes Mellitus Type 2: Yes - HEMATOLOGICAL/ONCOLOGICAL Hx Blood Disorders: Yes (anemia) - INTEGUMENTARY Hx Dermatological Problems: No - MUSCULOSKELETAL/RHEUMATOLOGICAL Hx Arthritis: Yes - GASTROINTESTINAL Hx Gastrointestinal Disorders: No - GENITOURINARY/GYNECOLOGICAL Hx Genitourinary Disorders: No - PSYCHIATRIC Hx Psychophysiologic Disorder: Yes (anxiety, bi-polar) Hx Substance Use: Yes (marijuana) - SURGICAL HISTORY Hx Surgeries: Yes Hx Hysterectomy: Yes - ANESTHESIA Hx Anesthesia: Yes Hx Anesthesia Reactions: No Hx Malignant Hyperthermia: No Meds Allergies/Adverse Reactions: Allergies Allergy/AdvReac Type Severity Reaction Status Date / Time acetaminophen [From Percocet] Allergy URTICARIA Verified 02/15/18 13:42 oxycodone HCl [From Percocet] Allergy URTICARIA Verified 02/15/18 13:42 strawberry Allergy URTICARIA Verified 02/15/18 13:42 Physical Exam - Constitutional Appears: Well, No Acute Distress - Head Exam Head Exam: ATRAUMATIC, NORMAL INSPECTION, NORMOCEPHALIC - Eye Exam Eye Exam: EOMI, Normal appearance, PERRL Pupil Exam: NORMAL ACCOMODATION, PERRL - ENT Exam ENT Exam: Mucous Membranes Moist, Normal Exam - Neck Exam Neck exam: Positive for: Full Rom, Normal Inspection - Respiratory Exam Respiratory Exam: Clear to Auscultation Bilateral, NORMAL BREATHING PATTERN - Cardiovascular Exam Cardiovascular Exam: REGULAR RHYTHM, +S1, +S2 - GI/Abdominal Exam GI & Abdominal Exam: Normal Bowel Sounds, Soft. absent: Tenderness - Extremities Exam Extremities exam: Positive for: normal inspection, tenderness (Left Shoulder with Limitted ROM) - Back Exam Back exam: NORMAL INSPECTION - Neurological Exam Neurological exam: Alert, CN II-XII Intact, Motor Sensory Deficit, Normal Gait, Oriented x3, Reflexes Normal - Expanded Neurological Exam Expanded Patient oriented to: person, place, time Cranial nerves: EOM's Intact: Normal, Facial Palsey w/Forehead Movement: Normal , Facial Palsey w/o Forehead Movement: Normal, Facial Sensation: Normal, Gag Reflex: Normal, Nystagmus: Normal, Tongue Deviation: Normal Cerebellar Function: Finger to Nose: Normal, Heel to Mcneal: Normal, Romberg: Normal Upper motor neuron: Babinski Sign: Normal, Marcial Neglect: Normal, Pronator Drift : Abnormal Left Neuro motor strength exam: Left Upper Extremity: 5, Left Lower Extremity: 4, Right Lower Extremity: 5 DTR: Achilles Tendon Left: 2+, Achilles Tendon Right: 2+, Bicep Left: 2+, Bicep Right: 2+ - Psychiatric Exam Psychiatric exam: Normal Affect, Normal Mood - Skin Skin Exam: Dry, Intact, Normal Color, Warm Results - Vital Signs Recent Vital Signs: Last Vital Signs Temp 98.3 F 02/18/18 08:06 Pulse 84 02/18/18 08:06 Resp 18 02/18/18 08:06 BP 112/75 02/18/18 08:06 Pulse Ox 95 02/18/18 08:06 - Labs Result Diagrams: 02/17/18 05:30 02/17/18 05:30 Labs: Laboratory Results - last 24 hr 02/17/18 02/17/18 02/17/18 11:46 16:35 21:11 POC Glucose (mg/dL) 177 H 93 131 H 02/18/18 06:09 POC Glucose (mg/dL) 88 - Imaging and Cardiology CT scan - head Status: Report reviewed by me Additional comment: CT HEAD WITHOUT CONTRAST. HISTORY: Left arm numbness COMPARISON: None available. TECHNIQUE: Axial computed tomography images were obtained through the head/brain without intravenous contrast. Radiation dose: Total exam DLP = 997.74 mGy-cm. This CT exam was performed using one or more of the following dose reduction techniques: Automated exposure control, adjustment of the mA and/or kV according to patient size, and/or use of iterative reconstruction technique. FINDINGS: HEMORRHAGE: No intracranial hemorrhage. BRAIN: Normal patel-white matter differentiation and density are appreciated throughout the cerebrum and cerebellum with the brainstem appearing unremarkable as well. There is no mass effect. There is no suspicious extra-axial fluid collection and the midline brain anatomy appears diffusely unremarkable. VENTRICLES: Unremarkable. No hydrocephalus. CALVARIUM: Unremarkable. PARANASAL SINUSES: Trace right sphenoid sinusitis. MASTOID AIR CELLS: Unremarkable as visualized. No inflammatory changes. OTHER FINDINGS: None. IMPRESSION: Negative CT examination of the brain without contrast. Incidental trace right sphenoid sinusitis. Assessment & Plan (1) CVA (cerebrovascular accident) Assessment and Plan: Rule out Left Hemiparesis Patient refused MRI due to Claustrophobia C/W ASA and Plavix TTE, Carotid Doppler FAsting li[id profile HgA1C Neurology Consult Will Repeat CT Head if patient continue to Refuse MRI Brain Status: Acute (2) Diabetes mellitus with hyperglycemia Status: Chronic Priority: Medium (3) Left shoulder tendinitis Assessment and Plan: Toradol PRN May need Imaging Status: Acute (4) HTN (hypertension) Status: Acute Priority: Low
--- NOTE | 2018-02-18 09:11 | CP.PCM.PN ---
Subjective - Date & Time of Evaluation Date of Evaluation: 02/17/18 Time of Evaluation: 12:30 - Subjective Subjective: Patient states feeling Better. All symptoms have resolved today except some weakness. Repeat CT Head Pending, and if normal, patient can be discharged to TCU or Home with Home services depending on PT/OT evaluation. Cardiology and Neurology input appreciated. Objective - Vital Signs/Intake and Output Vital Signs (last 24 hours): Temp Pulse Resp BP Pulse Ox 98.3 F 84 18 112/75 95 02/18/18 08:06 02/18/18 08:06 02/18/18 08:06 02/18/18 08:06 02/18/18 08:06 - Medications Medications: Current Medications Albuterol (Ventolin Hfa 90 Mcg/Actuation (8 G)) 2 puff IH Q6 PRN PRN Reason: Shortness of Breath Allopurinol (Zyloprim) 100 mg PO Q12 [facility] Last Admin: 02/17/18 21:59 Dose: 100 mg Amlodipine Besylate (Norvasc) 10 mg PO DAILY [facility] Last Admin: 02/17/18 10:26 Dose: 10 mg Apixaban (Eliquis) 5 mg PO BID [facility] PRN Reason: Protocol Aspirin (Ecotrin) 81 mg PO DAILY [facility] Last Admin: 02/17/18 10:26 Dose: 81 mg Atorvastatin Calcium (Lipitor) 20 mg PO DAILY [facility] Last Admin: 02/17/18 10:27 Dose: 20 mg Benztropine Mesylate (Cogentin) 0.5 mg PO DAILY [facility] Last Admin: 02/17/18 17:47 Dose: 0.5 mg Gabapentin (Neurontin) 300 mg PO Q12 [facility] Last Admin: 02/16/18 08:52 Dose: 300 mg Glipizide (Glucotrol Xl) 10 mg PO BRK [facility] Last Admin: 02/17/18 08:24 Dose: 10 mg Home Med (Empagliflozin [Jardiance]) 10 mg PO DAILY [facility] Last Admin: 02/17/18 10:24 Dose: 10 mg Hydroxyzine Pamoate (Vistaril) 25 mg PO Q8 [facility] Last Admin: 02/18/18 01:57 Dose: 25 mg Sodium Chloride (Sodium Chloride 0.9%) 1,000 mls @ 100 mls/hr IV .Q10H [facility] Last Admin: 02/17/18 17:51 Dose: 100 mls/hr Ibuprofen (Motrin Tab) 600 mg PO Q6 PRN PRN Reason: Pain, moderate (4-7) Last Admin: 02/16/18 18:10 Dose: 600 mg Insulin Detemir (Levemir) 42 units SC BID [facility] Last Admin: 02/17/18 17:48 Dose: 42 units Insulin Human Lispro (Humalog) 0 units SC ACHS [facility] PRN Reason: Protocol Last Admin: 02/17/18 22:58 Dose: Not Given Losartan Potassium (Cozaar) 100 mg PO DAILY [facility] Last Admin: 02/17/18 10:25 Dose: 100 mg Metformin HCl (Glucophage) 1,000 mg PO BID [facility] Last Admin: 02/17/18 17:49 Dose: 1,000 mg Metoprolol Succinate (Toprol Xl) 100 mg PO DAILY [facility] Last Admin: 02/17/18 10:29 Dose: 100 mg Montelukast Sodium (Singulair) 10 mg PO DAILY [facility] Last Admin: 02/17/18 10:29 Dose: 10 mg Multivitamins/Minerals (Therapeutic-M Tab) 1 tab PO DAILY [facility] Last Admin: 02/17/18 10:24 Dose: 1 tab Pantoprazole Sodium (Protonix Ec Tab) 40 mg PO DAILY [facility] Last Admin: 02/17/18 10:35 Dose: 40 mg Risperidone (Risperdal Tab) 2 mg PO Q12 [facility] Last Admin: 02/16/18 08:50 Dose: 2 mg Fluticasone/Salmeterol (Advair Diskus 100/50) 1 puff IH Q12 [facility] Last Admin: 02/17/18 21:58 Dose: 1 puff Sitagliptin Phosphate (Januvia) 100 mg PO DAILY [facility] Last Admin: 02/17/18 10:25 Dose: 100 mg Tizanidine HCl (Zanaflex) 4 mg PO HS PRN PRN Reason: Muscle spasm - Labs Labs: 02/17/18 05:30 02/17/18 05:30 PT 11.5 Seconds (9.8-13.1) 02/15/18 14:28 INR 1.0 (0.9-1.2) 02/15/18 14:28 APTT 34.0 Seconds (25.6-37.1) 02/15/18 14:28 Assessment and Plan (1) CVA (cerebrovascular accident) Status: Acute (2) Diabetes mellitus with hyperglycemia Status: Chronic (3) Left shoulder tendinitis Status: Acute (4) HTN (hypertension) Status: Chronic - Assessment and Plan (Free Text) Assessment: Patient has improved significantly. Continue to Feel weak. PAtient will benefit from PT/OT. Plan: Continue Current Care
[2018-02-18] MEDS: Multivitamin With Minerals Tab PO SCH (09:31)
[2018-02-18] MEDS: Fluticasone-Salmeterol 100-50mcg Diskus IH SCH (09:31)
[2018-02-18] MEDS: Metoprolol Succinate 100 mg XL Tab PO SCH (09:31)
[2018-02-18] MEDS: GlipiZIDE 10 mg SR Tab PO SCH (09:32)
[2018-02-18] MEDS: Insulin Lispro (humaLOG) 100 Units/ml Inj SC SCH ×2 (09:33→12:44)
[2018-02-18] MEDS: Insulin Detemir 100 Units/ml Inj SC SCH (09:34)
[2018-02-18] MEDS: Pantoprazole 40 mg EC Tab PO SCH (09:34)
[2018-02-18] MEDS: Enoxaparin 40 mg Syringe SC SCH (09:39)
--- NOTE | 2018-02-18 10:04 | CP.PCM.PCO ---
Assessment/Plan - Assessment and Plan (Free Text) Assessment: Patient seen and examined VSS, patient with steady gait. denies chest pain shortness of breath, weakness or numbness. Plan discussed with Dr Castillo, pt prefers outpatient physical therapy. Discussed with Cardio Dr Osmani Md agrees with starting patient on eliquis for further cva prevention. Cleared with Neuro for dc home today with outpatient pt. DIscussed with patient, follow up with PCP and neuro outpatient.
[2018-02-18 12:06] VITALS: BP 117/74; PULSE 93; TEMP 98.1; O2SAT 97
--- NOTE | 2018-02-25 08:25 | PQF ---
PROVIDER RESPONSE TEXT: DX: TIA REVIEWER QUERY TEXT: Conflicting Documentation Clarification A single mention or documentation of cva vs tia for the same clinical presentation appears in the rec ord. Please clarify the diagnosis/diagnoses. Please also document if the condition is: -- Confirmed and current -- Confirmed, treated and resolved -- Ruled out -- Other, please specify The patient's Clinical Indicators include: CVA VS TIA Query created by: Mitali Moy on 02/22/2018 8:11 AM Electronically signed by: Jaime Castillo MD 02/25/2018 8:22 AM
== END 2018-02-18 15:43 | disposition home or self-care (01) | DRG 832 ==
LOC: H.ER 13:37 → H.ERHOLD 16:15 → H.TEL 21:50 → OBSVTOIN 02-17 14:37
PROVIDERS: ADMIT Internal Medicine; ATTEND Internal Medicine
DX: G45.9 Transient cerebral ischemic attack, unspecified (principal); E11.65 Type 2 diabetes mellitus with hyperglycemia; F03.90 Unspecified dementia, unspecified severity, without behavioral disturbance, psychotic disturbance, mood disturbance, and anxiety; F40.240 Claustrophobia; Z53.29 Procedure and treatment not carried out because of patient's decision for other reasons; Z88.6 Allergy status to analgesic agent; Z88.5 Allergy status to narcotic agent; Z91.018 Allergy to other foods; I10 Essential (primary) hypertension; E78.00 Pure hypercholesterolemia, unspecified; G89.29 Other chronic pain; F31.9 Bipolar disorder, unspecified; I25.10 Atherosclerotic heart disease of native coronary artery without angina pectoris; Z86.73 Personal history of transient ischemic attack (TIA), and cerebral infarction without residual deficits; M75.92 Shoulder lesion, unspecified, left shoulder; J45.909 Unspecified asthma, uncomplicated; F41.9 Anxiety disorder, unspecified; M19.90 Unspecified osteoarthritis, unspecified site; G81.94 Hemiplegia, unspecified affecting left nondominant side